=== PATIENT | male | born 1990 | race Caucasian/White ===

== ENCOUNTER 2022-03-30 12:37 | Emergency (ER) | payer OTHER, SELFPAY ==
--- NOTE | 2022-03-30 15:12 | EXP.UTC ---
Discharge Plan Disposition Patient Disposition: Home, Self-Care Condition: Good Prescriptions Prescriptions: No Action nicotine [Nicoderm CQ] 21 mg/24 hr patch 24 hour 1 patch transdermal Q24H Qty: 28 1RF (DME) blood pressure kit-extra large Kit See Rx Instructions .Route Qty: 1 0RF Rx Instructions: As directed Referrals Follow up/Referrals: Viv Schmidt APRN [Primary Care Provider] - See instructions Activity Restrictions/Add. Instructions Additional Instructions/Restrictions: Drink plenty of fluids. Take the ibuprofen for pain regularly for the next few days. Use the incentive spirimoter 10 time every 2 hours while you are awake for the next 2 weeks or so. Follow up with your regular doctor. GO TO THE ER FOR ANY WORSENING SYMPTOMS Clinical Impressions Clinical Impression: Contusion of rib on left side Instructions Patient Instructions: DI for Rib Contusion Discharge ED Provider: Trevor Brink [facility] [place] HPI General Stated complaint: AO03/27@work fall, pain on Lt side Time Seen by Provider: 03/30/22 15:12 History of Present Illness Provider Complaint: He states that 5 days ago he fell on the snow and ice and came down on the left side of his chest. Since then he has had left upper rib pain with coughing, deep breathing and moving. He denies any shortness of breath. Related Data Previous Rx's Medication Instructions Recorded nicotine 21 mg/24 hr daily 1 patch transdermal Q24H #28 ea 03/06/22 transdermal patch (Nicoderm CQ) blood pressure kit-extra large #1 ea 03/09/22 Allergies Allergy/AdvReac Type Severity Reaction Status Date / Time No Known Allergies Allergy Verified 03/30/22 15:23 [facility] Disclaimer: The information contained in this section may have been updated after the patient was seen, as this information can be updated by other users. Medical History No active medical problems Surgical History [place] teeth extracted Social History Smoking Status: Current every day smoker tobacco type: cigarettes packs per day: 1 years smoked: 10 quit status: considering quitting alcohol intake: current substance use type: denies use current occupational status: employed Travel in the last 8 weeks: None household members: spouse and children lives independently: Yes marital status: number of children: 2 ROS Obtained: Yes All systems reviewed & no additional complaints except as documented Constitutional Constitutional: Denies chills and Denies fever(s) Eyes Eyes: Denies eye discharge ENT Ears, Nose, Mouth, and Throat: Denies dizziness, Denies otalgia and Denies sore throat Cardiovascular Cardiovascular: Reports as per HPI and Denies chest pain Respiratory Respiratory: Denies shortness of breath, Denies chest congestion, Denies cough, Denies stridor and Denies wheezing Gastrointestinal Gastrointestingal: Denies nausea or vomiting Musculoskeletal Musculoskeletal: Reports system reviewed and no additional complaints, except as documented and Denies arthralgias Integumentary/Breasts Skin/Breast: Denies rash Neurologic Neurologic: Denies dizziness and Denies paresthesias Allergic/Immunologic Allergic/Immunologic: Denies wheezing Physical Exam General General appearance: alert and in no apparent distress Head Head exam: atraumatic, normocephalic and normal inspection Eye Eye exam: Present normal appearance, PERRL and EOMI ENT ENT exam: Present normal exam, normal oropharynx, mucous membranes moist, TM's normal bilaterally and normal external ear exam Neck Neck exam: Present normal inspection, full ROM and trachea midline; Absent meningismus or lymphadenopathy Chest Chest inspection: Present symmetric chest wall rise; Absent tenderness, rash or abscess Respiratory Respi
[2022-03-30 15:20] VITALS: BP 162/97; PULSE 94; RESP 16; TEMP 37; O2SAT 97; BMI 38.1
--- NOTE | 2022-03-30 15:29 | XR_ITS ---
PROCEDURE INFORMATION: Exam: XR Left Ribs with PA Chest Exam date and time: 03/30/2022 3:54 PM Age: 32 years old Clinical indication: Injury or trauma; Fall; Rib area, left side; Blunt trauma; Additional info: Pain in left ribs after fall on ice TECHNIQUE: Imaging protocol: Radiologic exam of the Left ribs with PA chest. Views: 3 views COMPARISON: No relevant prior studies available. FINDINGS: Lungs: Subsegmental atelectasis left base. Pleural spaces: Unremarkable. No pleural effusion. No pneumothorax. Heart/Mediastinum: Unremarkable. No cardiomegaly. Bones/joints: Unremarkable. IMPRESSION: Subsegmental atelectasis left base.
[2022-03-30 17:01] VITALS: BP 162/97; PULSE 94; RESP 16; TEMP 37
== END 2022-03-30 17:05 | disposition home or self-care (01) ==
PROVIDERS: Emergency Provider Nurse Practitioner Family; PCP Nurse Practitioner Family
DX: S20.212A Contusion of left front wall of thorax, initial encounter (principal); W00.2XXA Other fall from one level to another due to ice and snow, initial encounter
CPT/HCPCS: 71101; 99212; G0463

== ENCOUNTER → 2022-04-06 15:03 | Outpatient (CLI) | payer OTHER, SELFPAY ==
[2022-04-06 15:11] LABS: MANUAL DIFFERENTIAL MANUAL DIFFERENTIAL (MANUAL DIFF)
[2022-04-06 16:19] LABS: Basophils # 0.1 K/mm3 (0-0.2); Basophils % 0.8 % (0.1-2.0); Eosinophils # 0.3 K/mm3 (0.0-0.4); Eosinophils % 4.3 % (0.1-12.0); Hematocrit 46.6 % (42.0-52.0); Hemoglobin 15.6 g/dL (14.1-18.0); Lymphocytes # 1.6 K/mm3 (0.7-4.5); Lymphocytes % 23.1 % (10-50); Mean Corpuscular HGB Conc 33.4 g/dL (31.8-35.4); Mean Corpuscular Hemoglobin 32.2 pg (27.0-31.2); Mean Corpuscular Volume 96.2 fl (80-94); Mean Platelet Volume 8.3 fl (7.4-10.4); Monocytes # 0.3 K/mm3 (0.1-1.0); Monocytes % 4.7 % (1.7-9.3); Neutrophils # 4.8 K/mm3 (1.8-7.8); Neutrophils % 67.2 % (37.0-80.0); Platelet Count 262 K/mm3 (142-424); Red Blood Count 4.85 M/mm3 (4.60-6.20); Red Cell Distribution Width 12.9 % (11.5-17.5); White Blood Count 7.1 K/mm3 (4.8-10.8)
[2022-04-06 16:28] LABS: Hemoglobin A1C 5.4 % (4.0-6.0)
[2022-04-06 16:55] LABS: Chloride 103 mmol/L (98-107)
[2022-04-06 16:56] LABS: Potassium 4.3 mmoL/L (3.5-5.1); Sodium 140 mmol/L (136-145)
[2022-04-06 16:58] LABS: Alanine Aminotransferase 51 U/L (12-78); Albumin Level 4.5 g/dl (3.5-5.0); Albumin/Globulin Ratio 1.8 (1.1-1.8); Alkaline Phosphatase 117 U/L (38-126); Anion Gap 14.3 mEq/L (5-15); Aspartate Amino Transferase 34 U/L (17-59); Bilirubin,Total 0.5 mg/dl (0.2-1.3); Blood Urea Nitrogen 16 mg/dl (9-20); Carbon Dioxide 27 mmol/L (22.0-30.0); Cholesterol 237 mg/dl (140-200); Estimated Glomerular Filt Rate 97 ml/min (>60); GFR (African American) 118 ML/MIN (>60); Globulin 2.5 g/dL (1.3-3.2); Triglycerides 211 mg/dl (30-150); VLDL Cholesterol 42 mg/dL (0-40)
[2022-04-06 16:59] LABS: Calcium 9.6 mg/dl (8.4-10.2); Chol/HDL Ratio 4.2 (1-3.5); Glucose 117 mg/dl (74-100); HDL Cholesterol 57 mg/dl (40-60)
[2022-04-06 17:29] LABS: Thyroid Stimulating Hormone 3.55 uIU/mL (0.465-4.68)
[2022-04-06 18:05] LABS: Eosinophils % 3 % (0-3); Lymphocytes % 40 % (10-50); Monocytes % 2 % (2-9); Neutrophils % 55 % (42-76); Platelet Estimate Normal; RBC Morphology Normal; Total Cells Counted 100
== END ==
PROVIDERS: PCP Family Medicine; Visit Provider Family Medicine
DX: Z00.00 Encounter for general adult medical examination without abnormal findings (principal); F10.10 Alcohol abuse, uncomplicated; R03.0 Elevated blood-pressure reading, without diagnosis of hypertension; Z68.38 Body mass index [BMI] 38.0-38.9, adult; Z72.0 Tobacco use
CPT/HCPCS: 36415; 80053; 80061; 83036; 84443; 85007; 85014; 85018; 85048; 85049

== ENCOUNTER → 2022-10-20 16:36 | Outpatient (CLI) | payer OTHER, SELFPAY ==
[2022-10-20 15:15] LABS: Basophils % 0.5 % (0.1-2.0); Eosinophils # 0.2 K/mm3 (0.0-0.4); Eosinophils % 2.5 % (0.1-12.0); Hematocrit 36.8 % (42.0-52.0); Hemoglobin 12.5 g/dL (14.1-18.0); Lymphocytes # 1.6 K/mm3 (0.7-4.5); Lymphocytes % 23.1 % (10-50); Mean Corpuscular Hemoglobin 31.3 pg (27.0-31.2); Mean Corpuscular Volume 92.1 fl (80-94); Mean Platelet Volume 7.7 fl (7.4-10.4); Monocytes # 0.3 K/mm3 (0.1-1.0); Monocytes % 3.8 % (1.7-9.3); Neutrophils # 4.8 K/mm3 (1.8-7.8); Neutrophils % 70.1 % (37.0-80.0); Platelet Count 247 K/mm3 (142-424); Red Cell Distribution Width 12.7 % (11.5-17.5); White Blood Count 6.8 K/mm3 (4.8-10.8)
[2022-10-20 15:32] LABS: Alanine Aminotransferase 43 U/L (12-78); Albumin Level 4.4 g/dl (3.5-5.0); Albumin/Globulin Ratio 1.6 (1.1-1.8); Alkaline Phosphatase 111 U/L (38-126); Amylase 49 U/L (30-110); Anion Gap 13.6 mEq/L (5-15); Aspartate Amino Transferase 31 U/L (17-59); Bilirubin,Total 0.2 mg/dl (0.2-1.3); Blood Urea Nitrogen 15 mg/dl (9-20); Calcium 9.6 mg/dl (8.4-10.2); Carbon Dioxide 24 mmol/L (22.0-30.0); Chloride 110 mmol/L (98-107); Cholesterol 214 mg/dl (140-200); Estimated Glomerular Filt Rate 111 ml/min (>60); GFR (African American) 135 ML/MIN (>60); Globulin 2.7 g/dL (1.3-3.2); Glucose 95 mg/dl (74-100); HDL Cholesterol 53 mg/dl (40-60); Lipase 37 U/L (23-300); Potassium 4.6 mmoL/L (3.5-5.1); Sodium 143 mmol/L (136-145); Total Protein,Serum 7.1 g/dl (6.3-8.2); Triglycerides 117 mg/dl (30-150); VLDL Cholesterol 23 mg/dL (0-40)
[2022-10-20 15:43] LABS: Direct LDL Cholesterol 134.47 mg/dL (100-129)
[2022-10-20 15:49] LABS: 25-OH Vitamin D, Total 37.2 ng/mL (30-100)
[2022-10-20 16:21] LABS: Vitamin B12 493 pg/mL (239-931)
[2022-10-20 17:00] LABS: Hemoglobin A1C 5.2 % (4.0-6.0)
[2022-10-23 23:14] LABS: Vitamin B1 147.8 nmol/L (66.5-200.0)
[2022-10-26 18:07] LABS: Vitamin B6 16.6 ug/L (3.4-65.2)
== END ==
PROVIDERS: PCP Nurse Practitioner Family; Visit Provider Nurse Practitioner Family
DX: F10.10 Alcohol abuse, uncomplicated (principal); I10 Essential (primary) hypertension; E78.5 Hyperlipidemia, unspecified; E66.9 Obesity, unspecified; Z68.39 Body mass index [BMI] 39.0-39.9, adult; Z13.1 Encounter for screening for diabetes mellitus; Z79.899 Other long term (current) drug therapy
CPT/HCPCS: 80053; 80061; 82150; 82306; 82607; 83036; 83690; 84207; 84425; 85025

== ENCOUNTER 2022-12-06 16:14 | Emergency (ER) | payer OTHER, SELFPAY ==
[2022-12-06 16:30] VITALS: BP 154/83; PULSE 91; O2SAT 97
[2022-12-06 16:31] LABS: Microscopic, Urine URINE MICROSCOPIC (MICROSCOPIC)
[2022-12-06 16:34] VITALS: BP 148/84; PULSE 94; RESP 16; TEMP 36.4; O2SAT 98; BMI 39.5
--- NOTE | 2022-12-06 16:50 | CT_ITS ---
PROCEDURE INFORMATION: Exam: CT Abdomen And Pelvis Without Contrast Exam date and time: 12/06/2022 5:02 PM Age: 32 years old Clinical indication: Abdominal pain; Additional info: Right flank pain TECHNIQUE: Imaging protocol: Computed tomography of the abdomen and pelvis without contrast. Radiation optimization: All CT scans at this facility use at least one of these dose optimization techniques: automated exposure control; mA and/or kV adjustment per patient size (includes targeted exams where dose is matched to clinical indication); or iterative reconstruction. REPORTING DATA: Count of CT and Cardiac NM exams in prior 12 months: This patient has received 0 known CTs and 0 known cardiac nuclear medicine studies in the 12 months prior to the current study. COMPARISON: CR XR RIBS LT MIN 3V W CXR1V 03/30/2022 3:54 PM FINDINGS: Lungs: The visualized lung bases are clear. Pleural spaces: There are no pleural effusions. Heart: The visualized portions of the heart are unremarkable. There is no evidence of pericardial fluid collections. Diaphragm: A small hiatal hernia is present. Liver: There is mild enlargement of the liver. Liver measures 23.5 cm in CC dimension. Evaluation of the liver is limited without contrast but the liver is otherwise within normal limits for this noncontrast study. Gallbladder and bile ducts: The gallbladder is contracted/decompressed. Pancreas: Noncontrast images of the pancreas are within range of normal. Spleen: The spleen is normal. Adrenal glands: The adrenal glands are normal. Kidneys and ureters: There is a proximal right ureteral calcification measuring approximately 8.7 mm resulting in mild right hydronephrosis and perinephric fat stranding. The left kidney is normal. Stomach and bowel: The stomach is normal. The duodenum is unremarkable. Lack of gastrointestinal contrast limits evaluation of bowel. The colon is normal. Unopacified loops of small bowel within range of normal. Appendix: A normal appendix is identified. Intraperitoneal space: No free air. No significant fluid collection. Vasculature: No abdominal aortic aneurysm. Lymph nodes: There is no evidence of pathologic adenopathy. Urinary bladder: The bladder is normal. Reproductive: The prostate and seminal vesicles are normal. Bones/joints: The thoracolumbar spine demonstrates mild degenerative changes at multiple levels. There is no evidence of acute fracture. Soft tissues: There is a tiny fat-containing umbilical hernia. No significant soft tissue edema. IMPRESSION: 1. Proximal right ureteral stone measuring approximately 8.7 mm resulting in mild right hydronephrosis and perinephric fat stranding. 2. Mild hepatomegaly. 3. Small hiatal hernia. 4. Tiny fat- containing umbilical hernia.
--- NOTE | 2022-12-06 16:51 | HMH.EDGENADL ---
Discharge Plan Disposition Patient Disposition: Home, Self-Care Prescriptions Prescriptions: New ibuprofen 800 mg tablet 800 mg PO TID PRN (Reason: pain) 7 Days Qty: 20 0RF hydrocodone-acetaminophen 5-325 mg tablet 1 tab PO Q6H PRN (Reason: pain) 3 Days Qty: 12 0RF tamsulosin [Flomax] 0.4 mg capsule 0.4 mg PO DAILY 7 Days Qty: 7 0RF ondansetron 4 mg tablet,disintegrating 4 mg PO Q6H PRN (Reason: nausea and vomiting) 5 Days Qty: 20 0RF No Action (DME) blood pressure kit-extra large Kit See Rx Instructions .Route Qty: 1 0RF Rx Instructions: As directed lisinopril 40 mg tablet 40 mg PO DAILY Qty: 90 1RF multivitamin Tablet 1 tab PO DAILY ferrous fumarate 325 mg (106 mg iron) tablet 325 mg PO DAILY bupropion HCl 150 mg tablet extended release 24 hr 150 mg PO DAILY esomeprazole magnesium [Nexium] 20 mg capsule,delayed release(DR/EC) 20 mg PO DAILY Qty: 90 1RF levocetirizine [Xyzal] 5 mg tablet 5 mg PO DAILY Qty: 90 3RF Referrals Follow up/Referrals: Xiomara Stacy APRN [Primary Care Provider] - See instructions Clinical Impressions Clinical Impression: Acute right flank pain Instructions Patient Instructions: DI for Acute Abdominal Pain Discharge ED Provider: Aleisha Esteves General Adult HPI General Chief complaint: Abdominal Pain Stated complaint: Abd pain Time Seen by Provider: 12/06/22 16:35 Mode of Arrival: Ambulatory Source of Information: Patient Limitations: No Limitations Description of Symptoms (Recalled from ER Triage Doc. by RN): 32 yo M presents to ED with co abdominal pain. symptoms began approx 1430 today. not tender to palpation at time of exam, pts spouse reports tender to palpation earlier today. History of Present Illness HPI narrative: The patient is a 32-year-old male presenting today with severe sudden right flank pain that is since resolved. This lasted about 45 minutes just prior to arrival. States he was up drinking very heavily all night long went to bed around 1 to 2 AM woke up at noon actually felt well. Patient states he had very dark thick urine 2 times he urinated today. No history of any kidney stones no history of pancreatitis he has no history of cholecystectomy appendectomy. States his symptoms are completely resolved at the moment but was very severe just prior to arrival. Related Data Home Medications Medication Instructions Recorded Confirmed bupropion HCl 150 mg 24 hr tablet, 150 mg PO DAILY 11/30/22 extended release ferrous fumarate 325 mg (106 mg 325 mg PO DAILY 11/30/22 11/30/22 iron) tablet multivitamin 1 tab PO DAILY 11/30/22 11/30/22 Previous Rx's Medication Instructions Recorded blood pressure kit-extra large #1 ea 03/09/22 lisinopril 40 mg tablet 40 mg PO DAILY #90 tabs 10/20/22 esomeprazole magnesium 20 mg 20 mg PO DAILY #90 caps 11/30/22 capsule,delayed release (Nexium) levocetirizine 5 mg tablet (Xyzal) 5 mg PO DAILY #90 tabs 11/30/22 hydrocodone 5 mg-acetaminophen 325 1 tab PO Q6H PRN pain 3 days #12 12/06/22 mg tablet tabs ibuprofen 800 mg tablet 800 mg PO TID PRN pain 7 days #20 12/06/22 tabs ondansetron 4 mg disintegrating 4 mg PO Q6H PRN nausea and 12/06/22 tablet vomiting 5 days #20 tabs tamsulosin 0.4 mg capsule (Flomax) 0.4 mg PO DAILY 7 days #7 caps 12/06/22 Allergies Allergy/AdvReac Type Severity Reaction Status Date / Time No Known Allergies Allergy Verified 11/30/22 09:08 [facility] Disclaimer: The information contained in this section may have been updated after the patient was seen, as this information can be updated by other users. Surgical History [place] teeth extracted Family History Mother Hypertension Social History Smoking Status: Never smoker years smoked: 10 quit
[2022-12-06 16:57] LABS: Color,Urine Dark Yellow (Yellow)
[2022-12-06 16:58] LABS: Appearance,Urine Clear (Clear); Bilirubin,Urine Negative (Negative); Blood, Urine 3+ (Negative); Glucose,Urine (UA) Negative (Negative); Ketones,Urine Negative (Negative); Leukocyte Esterase,Urine Negative (Negative); Nitrate,Urine Negative (Negative); Protein,Urine Trace (Negative); Specific Gravity, Urine 1.015 (1.005-1.030); Urobilinogen,Urine 0.2 EU/dl (0.2)
[2022-12-06 17:00] LABS: RBC,Urine TNTC #/hpf (0-3); Squamous Epithelial Cell,Urine Occasional #/hpf (0-5)
[2022-12-06 17:09] LABS: Basophils % 0.4 % (0.1-2.0); Eosinophils # 0.2 K/mm3 (0.0-0.4); Eosinophils % 2.2 % (0.1-12.0); Lymphocytes # 1.9 K/mm3 (0.7-4.5); Lymphocytes % 18.8 % (10-50); Mean Corpuscular HGB Conc 33.3 g/dL (31.8-35.4); Mean Corpuscular Hemoglobin 31.4 pg (27.0-31.2); Mean Corpuscular Volume 94.3 fl (80-94); Mean Platelet Volume 7.6 fl (7.4-10.4); Monocytes # 0.4 K/mm3 (0.1-1.0); Monocytes % 3.9 % (1.7-9.3); Neutrophils # 7.3 K/mm3 (1.8-7.8); Neutrophils % 74.6 % (37.0-80.0); Platelet Count 251 K/mm3 (142-424); Red Blood Count 4.46 M/mm3 (4.60-6.20); Red Cell Distribution Width 12.9 % (11.5-17.5); White Blood Count 9.8 K/mm3 (4.8-10.8)
[2022-12-06 17:16] LABS: Chloride 103 mmol/L (98-107); Potassium 4.2 mmoL/L (3.5-5.1); Sodium 139 mmol/L (136-145)
[2022-12-06 17:18] LABS: Alanine Aminotransferase 60 U/L (12-78); Alkaline Phosphatase 107 U/L (38-126); Aspartate Amino Transferase 64 U/L (17-59); Bilirubin,Total 0.5 mg/dl (0.2-1.3); Blood Urea Nitrogen 18 mg/dl (9-20); Creatinine Clearance Estimated 202 mL/min (50-200); Estimated Glomerular Filt Rate 86 ml/min (>60); GFR (African American) 104 ML/MIN (>60)
[2022-12-06 17:19] LABS: Albumin Level 4.5 g/dl (3.5-5.0); Albumin/Globulin Ratio 1.3 (1.1-1.8); Anion Gap 17.2 mEq/L (5-15); Calcium 9.7 mg/dl (8.4-10.2); Carbon Dioxide 23 mmol/L (22.0-30.0); Creatine Kinase 1032 U/L (55-170); Globulin 3.4 g/dL (1.3-3.2); Glucose 91 mg/dl (74-100); Lipase 46 U/L (23-300); Total Protein,Serum 7.9 g/dl (6.3-8.2)
[2022-12-06 18:49] VITALS: BP 144/78; PULSE 90; RESP 20; TEMP 36.4; O2SAT 97
== END 2022-12-06 18:50 | disposition home or self-care (01) ==
PROVIDERS: Emergency Provider Student in an Organized Health Care Education/Training Program; PCP Nurse Practitioner Family
DX: R10.9 Unspecified abdominal pain (principal); N13.30 Unspecified hydronephrosis; N20.1 Calculus of ureter; Z87.891 Personal history of nicotine dependence
CPT/HCPCS: 74176; 80053; 81001; 82550; 83690; 85025; 96360; 99285

== ENCOUNTER 2023-10-20 15:32 | Observation (INO) | payer OTHER, SELFPAY ==
--- NOTE | 2023-10-20 | ECG_ITS ---
APPROVED REPORT Exam: Resting ECG HR:81 bpm ECG Measurements Heart Rate 81 AXES MO 151 P 52 QRSd 117 QRS 78 QT 368 T -27 QTc 406 Conclusion SINUS RHYTHM POSSIBLE INFERIOR MYOCARDIAL INFARCTION , OF INDETERMINATE AGE [30 ms Q WAVE IN II/aVF] ABNORMAL ECG UNCONFIRMED REPORT Electronically signed by : Trevor Acuna, 10/20/2023 23:06:19
[2023-10-20 15:34] VITALS: BP 126/65; PULSE 88; RESP 18; TEMP 36.6; O2SAT 95; BMI 39.5
--- NOTE | 2023-10-20 15:53 | ED_ITS ---
Discharge Plan Prescriptions Prescriptions: No Action (DME) blood pressure kit-extra large Kit See Rx Instructions .Route Qty: 1 0RF Rx Instructions: As directed Wegovy 0.25 mg/0.5 mL pen injector 0.25 mg SQ WEEKLY Qty: 2 0RF Rx Instructions: administer weeks 1 through 4 of therapy bupropion HCl [Wellbutrin XL] 300 mg tablet extended release 24 hr 300 mg PO DAILY Qty: 90 1RF multivitamin Tablet 1 tab PO DAILY esomeprazole magnesium [Nexium] 20 mg capsule,delayed release(DR/EC) 20 mg PO DAILY Qty: 90 1RF chlorthalidone 25 mg tablet See Rx Instructions .ROUTE .COMPLEX Qty: 90 1RF Dose Instruction: Take 1 tablet by mouth once daily Rx Instructions: Take 1 tablet by mouth once daily lisinopril 40 mg tablet See Rx Instructions .ROUTE .COMPLEX Qty: 90 1RF Dose Instruction: Take 1 tablet by mouth once daily Rx Instructions: Take 1 tablet by mouth once daily ferrous fumarate [Ferrocite] 324 mg (106 mg iron) tablet See Rx Instructions .ROUTE .COMPLEX Qty: 30 0RF Dose Instruction: Take 1 tablet by mouth once daily Rx Instructions: Take 1 tablet by mouth once daily Referrals Follow up/Referrals: Kimani Martin DO [Primary Care Provider] - See instructions Discharge ED Provider: Lopez Acuna General Adult HPI General Stated complaint: cramps, V/D exposed to heat Time Seen by Provider: 10/20/23 15:51 Related Data Home Medications Medication Instructions Recorded Confirmed multivitamin 1 tab PO DAILY 11/30/22 06/18/23 Previous Rx's Medication Instructions Recorded blood pressure kit-extra large #1 ea 03/09/22 esomeprazole magnesium 20 mg 20 mg PO DAILY #90 caps 11/30/22 capsule,delayed release (Nexium) lisinopril 40 mg tablet See Rx Instructions .Route 05/03/23 .COMPLEX #90 tabs bupropion HCl 300 mg 24 hr tablet, 300 mg PO DAILY #90 tabs 05/07/23 extended release (Wellbutrin XL) semaglutide (weight loss) 0.25 0.25 mg (0.5 mL) SQ WEEKLY #2 mL 05/07/23 mg/0.5 mL subcutaneous pen injector (Wegovy) chlorthalidone 25 mg tablet See Rx Instructions .Route 06/18/23 .COMPLEX #90 tabs ferrous fumarate 324 mg (106 mg See Rx Instructions .Route 06/18/23 iron) tablet (Ferrocite) .COMPLEX #30 tabs Allergies Allergy/AdvReac Type Severity Reaction Status Date / Time No Known Allergies Allergy Verified 06/18/23 09:49 [facility] Disclaimer: The information contained in this section may have been updated after the patient was seen, as this information can be updated by other users. Medical History (Updated 06/18/23 @ 09:52 by TOMAS Roman) Seasonal allergies Edema High blood pressure Surgical History [place] teeth extracted Family History Mother Hypertension Social History (Updated 06/18/23 @ 09:53 by TOMAS Roman) Smoking Status: Former smoker years smoked: 10 quit status: considering quitting alcohol intake: current alcohol intake frequency: 0-2 drinks per day substance use type: denies use current occupational status: employed Travel in the last 8 weeks: None household members: spouse and children lives independently: Yes marital status: number of children: 2 ROS Obtained: Yes Systems reviewed as appropriate & no additional complaints except as documented Physical Exam General General appearance: alert and in no apparent distress Head Head exam: atraumatic and normal inspection Eye Eye exam: Present normal appearance, PERRL and EOMI ENT ENT exam: Present normal exam, normal oropharynx and mucous membranes moist Neck Neck exam: Present normal inspection, full ROM and trachea midline; Absent lymphadenopathy Chest Chest inspection: Present normal inspection and symmetric chest wall rise Respiratory Respiratory exam: Present normal lung sounds bilaterally; Absent accessory muscle use Cardiovascular Cardiovascular exam: Present regular rate, normal rhythm, normal heart sounds, +S1 and +S2 Abdominal Exam Abdominal exam: Present soft and normal bowel sounds; Absent tenderness, guarding or rebound Extremities Exam Extremities exam: Present normal inspection and full ROM Neurological Exam Neurological exam: Present alert, oriented X3 and CN II-XII intact Psychiatric Psychiatric exam: Present normal affect and normal mood Skin Skin exam: Present warm, dry and normal color Lymphatic Lymphatic Findings: no adenopathy Medical Decision Making Medical Decision Narrative: In summary patient is a [age, sex] who presents to the emergency department for evaluation of [complaint]. Patient is [hemodynamically stable/unstable] upon arrival, [febrile/afebrile]. [Unremarkable physical exam, nonfocal exam versus focal remarkable exam]. Differential diagnosis includes [DDx]. Initial workup will be conducted with [hematologic labs, imaging, respiratory swab, describe workup]. Initial interventions include [crystalloid bolus, medications, p.o. challenge, etc.] initial workup reviewed by me [hematologic labs are remarkable for... Imaging remarkable for... Urinalysis remarkable for]. Upon repeat evaluation [patient had acceptable resolution of symptoms, had persistent pain for which additional interventions were conducted (describe interventions), tolerated p.o., was ambulatory, etc.]. Given this [patient is appropriate for discharge at this time and will be discharged with a prescription for... The case was discussed with hospital medicine regarding management and they will admit the patient their service for continued evaluation at this time... Etc.] Places where you can increase complexity: I informally interpreted the patient's chest x-ray or CT read and is remarkable for... Documenting what the nurse monitoring shows with rate and rhythm Consideration of test but deferring. Ex: I considered chest x-ray on this patient however given that they have no oxygen requirement and are clear to auscultation all lung feliz will be deferred. Social determinants of health: Given that patient is undomiciled increases complexity. Given that patient has polysubstance abuse compounds all aspects of care
[2023-10-20] MEDS: LACTATED RINGERS 1000ML 1,000 ML 999 ML IV ×2 (16:24→18:35)
[2023-10-20] MEDS: ACETAMINOPHEN 1,000MG/100ML VIAL 1000 MG IV (16:25)
--- NOTE | 2023-10-20 16:25 | ED_ITS ---
Discharge Plan Disposition Patient Disposition: Admitted Prescriptions Prescriptions: No Action (DME) blood pressure kit-extra large Kit See Rx Instructions .Route Qty: 1 0RF Rx Instructions: As directed Wegovy 0.25 mg/0.5 mL pen injector 0.25 mg SQ WEEKLY Qty: 2 0RF Rx Instructions: administer weeks 1 through 4 of therapy bupropion HCl [Wellbutrin XL] 300 mg tablet extended release 24 hr 300 mg PO DAILY Qty: 90 1RF multivitamin Tablet 1 tab PO DAILY esomeprazole magnesium [Nexium] 20 mg capsule,delayed release(DR/EC) 20 mg PO DAILY Qty: 90 1RF chlorthalidone 25 mg tablet See Rx Instructions .ROUTE .COMPLEX Qty: 90 1RF Dose Instruction: Take 1 tablet by mouth once daily Rx Instructions: Take 1 tablet by mouth once daily lisinopril 40 mg tablet See Rx Instructions .ROUTE .COMPLEX Qty: 90 1RF Dose Instruction: Take 1 tablet by mouth once daily Rx Instructions: Take 1 tablet by mouth once daily ferrous fumarate [Ferrocite] 324 mg (106 mg iron) tablet See Rx Instructions .ROUTE .COMPLEX Qty: 30 0RF Dose Instruction: Take 1 tablet by mouth once daily Rx Instructions: Take 1 tablet by mouth once daily Referrals Follow up/Referrals: Kimani Martin DO [Primary Care Provider] - See instructions Clinical Impressions Clinical Impression: Heat exhaustion, Dehydration, severe, ABDELRAHMAN (acute kidney injury) Discharge ED Provider: Lopez Acuna General Adult HPI General Chief complaint: Weakness Stated complaint: cramps, V/D exposed to heat Time Seen by Provider: 10/20/23 15:51 Mode of Arrival: Ambulatory Source of Information: Patient Limitations: No Limitations Description of Symptoms (Recalled from ER Triage Doc. by RN): pt drank alcohol wednesday night and then has worked outside in heat and sun for the last 3 days and has heat exhaustion and dehydration. he says this has happened before pt is alox4 and vitals wnl upon triage, ER MD at bedside History of Present Illness HPI narrative: Patient is a previously healthy 33-year-old male presenting today with generalized fatigue and exhaustion and muscle weakness of the last several days. He works outside as a powerplant operator and states it has been extremely hot the last few days. Also states that he drank heavily yesterday evening which contribute to his symptoms today. States has had heat exhaustion in the past and this feels very similar. Has had decreased urine output and some muscle cramps but no dark urine. Denies any other focal complaints or symptoms. No loss of consciousness no focal neurologic deficits changes in mental status etc. Other than the hypertension history of kidney stones he has no past medical history. Related Data Home Medications Medication Instructions Recorded Confirmed multivitamin 1 tab PO DAILY 11/30/22 06/18/23 Previous Rx's Medication Instructions Recorded blood pressure kit-extra large #1 ea 03/09/22 esomeprazole magnesium 20 mg 20 mg PO DAILY #90 caps 11/30/22 capsule,delayed release (Nexium) lisinopril 40 mg tablet See Rx Instructions .Route 05/03/23 .COMPLEX #90 tabs bupropion HCl 300 mg 24 hr tablet, 300 mg PO DAILY #90 tabs 05/07/23 extended release (Wellbutrin XL) semaglutide (weight loss) 0.25 0.25 mg (0.5 mL) SQ WEEKLY #2 mL 05/07/23 mg/0.5 mL subcutaneous pen injector (Wegovy) chlorthalidone 25 mg tablet See Rx Instructions .Route 06/18/23 .COMPLEX #90 tabs ferrous fumarate 324 mg (106 mg See Rx Instructions .Route 06/18/23 iron) tablet (Ferrocite) .COMPLEX #30 tabs Allergies Allergy/AdvReac Type Severity Reaction Status Date / Time No Known Allergies Allergy Verified 06/18/23 09:49 [facility] Disclaimer: The information contained in this section may have been updated after the patient was seen, as this information can be updated by other users. Medical History (Updated 10/20/23 @ 18:17 by Lopez Acuna MD) Seasonal allergies Edema High blood pressure Surgical History [place] teeth extracted Family History Mother Hypertension Social History (Updated 06/18/23 @ 09:53 by TOMAS Roman) Smoking Status: Former smoker years smoked: 10 quit status: considering quitting alcohol intake: current alcohol intake frequency: 0-2 drinks per day substance use type: denies use current occupational status: employed Travel in the last 8 weeks: None household members: spouse and children lives independently: Yes marital status: number of children: 2 ROS Obtained: Yes All systems reviewed & no additional complaints except as documented Physical Exam General General appearance: alert and in no apparent distress Respiratory Respiratory exam: Present normal lung sounds bilaterally; Absent respiratory distress Cardiovascular Cardiovascular exam: Present regular rate and normal rhythm Abdominal Exam Abdominal exam: Present soft; Absent distention or tenderness Neurological Exam Neurological exam: Present alert and oriented X3 Medical Decision Making Jimenez Inquiry Pt receiving controlled substance: No Vital Signs: 10/20/23 15:34 10/20/23 17:00 Temperature 97.8 F Temperature Source Oral Pulse Rate 90 Pulse Rate [Right Radial] 88 Respiratory Rate 18 13 Blood Pressure 119/61 Blood Pressure [Right Arm] 126/65 Blood Pressure Mean [Right Arm] 85 02 Sat by Pulse Oximetry 95 95 Oxygen Delivery Method Room Air Room Air Lab Data Lab results reviewed: Yes I reviewed the patient's lab results. Lab Results 10/20/23 : WBC 10.8, RBC 4.49 L, Hgb 14.9, Hct 42.0, MCV 93.4, MCH 33.2 H, MCHC 35.6 H, RDW 13.4, Plt Count 257, MPV 7.1 L, Neut % (Auto) 60.0, Lymph % (Auto) 31.0, [place] % (Auto) 7.3, Eos % (Auto) 1.2, Baso % (Auto) 0.6, Neut # (Auto) 6.5, Lymph # (Auto) 3.3, [place] # (Auto) 0.8, Eos # (Auto) 0.1, Baso # (Auto) 0.1, S odium 134 L, Potassium 3.2 L, Chloride 96 L, Carbon Dioxide 26, Anion Gap 15.2 H , BUN 51 H, Creatinine 3.60 H, Estimated Creat Clear 56, Estimated GFR 20 L, Est GFR ( Amer) 24 L, Glucose 122 H, Calcium 12.3 H*, Magnesium 2.3, Total Bilirubin 0.6, AST 60 H, ALT 95 H, Alkaline Phosphatase 90, Total Creatine Kinase 203 H, Total Protein 8.0, Albumin 4.6, Globulin 3.4 H, Albumin/Globulin Ratio 1.4 10/20/23 Unknown 10/20/23 Unknown Orders (Tests/Meds): ED MEDICATIONS Generic Name Dose Route Start Last Admin Trade Name Freq PRN Reason Stop Dose Admin Lactated Ringer's 1,000 mls @ 999 mls/hr 10/20/23 18:15 Lactated Ringer's 1000 Ml Bag IV 10/20/23 19:15 .Q1H1M CONSUELO Lactated Ringer's 1,000 mls @ 100 mls/hr 10/20/23 18:15 Lactated Ringer's 1000 Ml Bag IV 11/19/23 18:14 .Q10H CONSUELO Non-Formulary Medication 300 mg 10/21/23 09:00 Bupropion Hcl [Wellbutrin Xl] PO 11/20/23 08:59 DAILY CONSUELO Discontinued Medications Generic Name Dose Route Start Last Admin Trade Name Freq PRN Reason Stop Dose Admin Acetaminophen 1,000 mg 10/20/23 15:54 10/20/23 16:25 Acetaminophen 1,000mg/100ml Vial IV 10/20/23 15:55 1,000 mg ONCE ONE Administration Lactated Ringer's 1,000 mls @ 999 mls/hr 10/20/23 15:54 10/20/23 16:24 Lactated Ringer's 1000 Ml Bag IV 10/20/23 16:54 999 mls/hr .Q1H1M ONE Administration Ondansetron HCl 4 mg 10/20/23 15:54 10/20/23 16:23 Ondansetron 4mg/2ml Vial IV 10/20/23 15:55 Not Given ONCE ONE ORDERS Category Date Time Status CBC w/Auto Diff [Complete Blood Count Auto Diff] Stat Lab 10/20/23 Completed CK [Creatine Kinase] Stat Lab 10/20/23 Completed CMP [Comprehensive Metabolic Panel] Stat Lab 10/20/23 Completed Complete Blood Count Auto Diff AMLAB Lab 10/21/23 06:00 Ordered Comprehensive Metabolic Panel AMLAB Lab 10/21/23 06:00 Ordered Magnesium AMLAB Lab 10/21/23 06:00 Ordered Magnesium Stat Lab 10/20/23 Completed Medical Decision Narrative: Patient is a 33-year-old male presenting today with generalized malaise and fatigue and muscle aches after working in the extreme heat recently as well as superimposed on heavy drinking which likely contributed dehydration. Will check basic electrolytes give IV fluids and reassess. Reassessment 617 patient feeling much better after IV fluids however labs returned showing a significant acute kidney injury with a creatinine of 3.6 up from a baseline of 1.0. Does have a significant elevation in his BUN most likely prerenal azotemia from dehydration. CK is normal no evidence of rhabdomyolysis. Spoke with Dr. Martin who agreed to admit the patient for further evaluation and management of this dehydration acute kidney injury. Second liter of IV fluids has been administered patient and family are agreeable to this plan. Critical Care Critical Care Time Critical Care Time: Yes Attestation: On 10/20/23, the high probability of a clinically significant, sudden or life threatening deterioration of the following system(s) required my full and direct attention, intervention and personal management. The time I documented below is in addition to time spent performing reported procedures but includes the following listed in this critical care notation. Total Time Total Critical Care Time: 35
[2023-10-20 16:44] LABS: Basophils # 0.1 K/mm3 (0-0.2); Basophils % 0.6 % (0.1-2.0); Eosinophils # 0.1 K/mm3 (0.0-0.4); Eosinophils % 1.2 % (0.1-12.0); Hemoglobin 14.9 g/dL (14.1-18.0); Lymphocytes # 3.3 K/mm3 (0.7-4.5); Mean Corpuscular HGB Conc 35.6 g/dL (31.8-35.4); Mean Corpuscular Hemoglobin 33.2 pg (27.0-31.2); Mean Corpuscular Volume 93.4 fl (80-94); Mean Platelet Volume 7.1 fl (7.4-10.4); Monocytes # 0.8 K/mm3 (0.1-1.0); Monocytes % 7.3 % (1.7-9.3); Neutrophils # 6.5 K/mm3 (1.8-7.8); Platelet Count 257 K/mm3 (142-424); Red Blood Count 4.49 M/mm3 (4.60-6.20); Red Cell Distribution Width 13.4 % (11.5-17.5); White Blood Count 10.8 K/mm3 (4.8-10.8)
[2023-10-20 16:55] LABS: Chloride 96 mmol/L (98-107); Potassium 3.2 mmoL/L (3.5-5.1); Sodium 134 mmol/L (136-145)
[2023-10-20 16:58] LABS: Alanine Aminotransferase 95 U/L (12-78); Albumin Level 4.6 g/dl (3.5-5.0); Albumin/Globulin Ratio 1.4 (1.1-1.8); Alkaline Phosphatase 90 U/L (38-126); Anion Gap 15.2 mEq/L (5-15); Aspartate Amino Transferase 60 U/L (17-59); Bilirubin,Total 0.6 mg/dl (0.2-1.3); Blood Urea Nitrogen 51 mg/dl (9-20); Carbon Dioxide 26 mmol/L (22.0-30.0); Creatine Kinase 203 U/L (55-170); Creatinine Clearance Estimated 56 mL/min (50-200); Estimated Glomerular Filt Rate 20 ml/min (>60); GFR (African American) 24 ML/MIN (>60); Globulin 3.4 g/dL (1.3-3.2); Glucose 122 mg/dl (74-100); Magnesium 2.3 mg/dl (1.6-2.3)
[2023-10-20 17:00] VITALS: BP 119/61; PULSE 90; RESP 13; O2SAT 95
[2023-10-20 17:06] LABS: Calcium 12.3 mg/dl (8.4-10.2)
--- NOTE | 2023-10-20 17:10 | PC.NURSE ---
Reported CA level of 12.3 to
--- NOTE | 2023-10-20 18:16 | PC.NURSE ---
notified house for admisson to 2nd floor per hospitalist.
--- NOTE | 2023-10-20 18:18 | PC.NURSE ---
notified house for admission to 2nd floor per hospitalist.
[2023-10-20 18:44] VITALS: BP 136/79; PULSE 80; RESP 18; TEMP 36.9; O2SAT 98
--- NOTE | 2023-10-20 18:47 | PC.NURSE ---
walked to floor from ED
[2023-10-20 19:00] VITALS: BP 118/84; PULSE 88; RESP 18; TEMP 36.7; O2SAT 96; BMI 37.7
[2023-10-20 20:00] VITALS: O2SAT 96
--- NOTE | 2023-10-20 20:13 | P.HP_ITS ---
History of Present Illness *Admission Date: 10/20/23 *Reason for visit:: Weakness *History of present illness: 7 Mandi is a 33-year-old male past medical history significant for HTN who presents emergency room tonight with generalized malaise, fatigue, exhaustion and weakness. 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 He tells me that Wednesday night, he drank a bit more than usual and then has been outside in the extreme heat in the sun working for the last couple of days. States he is had several episodes of nonbloody, nonbilious vomiting over the last couple of days. Noticed some decreased urine output and reports that his muscles have been extremely fatigued and cramping over the last couple of days. Has had heat exhaustion in the past and reports that this feels a bit likely heat exhaustion. Has been able to drink some water but likely tells me he has not had enough water intake. Denies any fever, cough, chest pain, shortness of breath, abdominal pain, or bladder dysfunction. No focal neurodeficits noted. Does not take any blood thinners. Does use a vape pen, endorses social alcohol use, no illicit drug use. Lab work in the ER showed an elevated BUN and creatinine of 51 and 3.6, baseline is typically around 18 and 1. Calcium elevated at 12.3, ALT and AST elevated at 95 and 60. Potassium a bit low at 3.2. Patient was given a 2 L IV fluid bolus in the emergency room. He will be admitted to the hospitalist service for ABDELRAHMAN secondary to dehydration from working outside. [facility] Disclaimer: The information contained in this section may have been updated after the patient was seen, as this information can be updated by other users. Medical History Kidney stones Seasonal allergies Edema High blood pressure Surgical History [place] teeth extracted Family History Mother Hypertension Social History (Updated 10/20/23 @ 19:37 by Karey Durbin RN) Smoking Status: Current every day smoker tobacco type: e-cigarettes smoking status start date: 2014 years smoked: 10 (stopped smoking ciggarettes 1.5 years ago and started vaping ) quit status: considering quitting alcohol intake: current alcohol intake frequency: 0-2 drinks per day substance use type: denies use current occupational status: employed Travel in the last 8 weeks: None household members: spouse and children lives independently: Yes marital status: number of children: 2 Review of Systems *Cardiovascular Cardiovascular: Reports system reviewed and no additional complaints, except as documented *Respiratory Respiratory: Reports system reviewed and no additional complaints, except as documented *Gastrointestinal Gastrointestinal: Reports system reviewed and no additional complaints, except as documented *Genitourinary Genitourinary: Reports oliguria *Musculoskeletal Musculoskeletal: Reports muscle weakness *Neurologic Neurologic: Reports system reviewed and no additional complaints, except as documented Meds Home Medications and Allergies Home Medications Medication Instructions Recorded Confirmed Type blood pressure kit-extra large #1 ea 03/09/22 10/21/23 Rx bupropion HCl 300 mg 24 hr tablet, 300 mg PO DAILY 10/20/23 10/20/23 History extended release chlorthalidone 25 mg tablet 25 mg PO DAILY 10/20/23 10/20/23 History lisinopril 40 mg tablet 40 mg PO DAILY 10/20/23 10/20/23 History New Prescriptions to Start Prescriptions: Allergies Allergy/AdvReac Type Severity Reaction Status Date / Time No Known Allergies Allergy Verified 06/18/23 09:49 Exam Data for Last 24 hours Vital signs and Labs for Last 24 Hours: Temp Pulse Resp BP Pulse Ox O2 Del Method 98.0 F 88 18 118/84 96 Room Air 10/20/23 19:00 10/20/23 19:00 10/20/23 19:00 10/20/23 19:00 10/20/23 19:00 10/20/23 19:00 Laboratory Results - last 24 hr 10/20/23 : WBC 10.8, RBC 4.49 L, Hgb 14.9, Hct 42.0, MCV 93.4, MCH 33.2 H, MCHC 35.6 H, RDW 13.4, Plt Count 257, MPV 7.1 L, Neut % (Auto) 60.0, Lymph % (Auto) 31.0, [place] % (Auto) 7.3, Eos % (Auto) 1.2, Baso % (Auto) 0.6, Neut # (Auto) 6.5, Lymph # (Auto) 3.3, [place] # (Auto) 0.8, Eos # (Auto) 0.1, Baso # (Auto) 0.1, Sodium 134 L, Potassium 3.2 L, Chloride 96 L, Carbon Dioxide 26, Anion Gap 15.2 H, BUN 51 H, Creatinine 3.60 H, Estimated Creat Clear 56, Estimated GFR 20 L, Est GFR ( Amer) 24 L, Glucose 122 H, Calcium 12.3 H*, Magnesium 2.3, Total Bilirubin 0.6, AST 60 H, ALT 95 H, Alkaline Phosphatase 90, Total Creatine Kinase 203 H, Total Protein 8.0, Albumin 4.6, Globulin 3.4 H, Albumin/Globulin Ratio 1.4 I & O for Last 24 hours: Intake & Output 10/17/23 10/18/23 10/19/23 10/20/23 23:59 23:59 23:59 23:59 Weight 129.756 kg *Routine HEENT Exam Head: Present normocephalic and atraumatic Eye: Present EOMI and PERRL ENT: Present mucous membranes moist *Routine Neck Exam Neck: Present supple and full ROM *Routine Respiratory Exam Respiratory: Present accessory muscle use *Routine Cardiovascular Exam Cardiovascular: Present RRR, Normal S1 and Normal S2 *Routine Abdominal Exam Abdominal: Present soft and normoactive bowel sounds *Routine Rectal Exam Rectal:: deferred *Routine Genitalia Exam Genitalia:: deferred *Routine Extremities Exam Extremities: Present pulses intact and normal capillary refill *Routine Skin Exam Skin: Present intact *Routine Neurological Exam Neurological: Present alert and oriented X3 Assessment and Plan *Assessment and plan (1) ABDELRAHMAN (acute kidney injury): Status: Acute Category: Medical Code(s): N17.9 - Acute kidney failure, unspecified (2) Dehydration, severe: Status: Acute Category: Medical Code(s): E86.0 - Dehydration (3) Hypertension: Status: Acute Category: Medical Code(s): I10 - Essential (primary) hypertension (4) Tobacco abuse: Status: Acute Category: Medical Code(s): Z72.0 - Tobacco use Plan Assessment: This is a 33-year-old male being admitted for ABDELRAHMAN secondary to dehydration. On my exam, patient is sitting up in bed in no acute distress. No complaints at this time. Plan: Admit to inpatient-MedSurg ABDELRAHMAN Dehydration -Received 2 L IV fluid bolus in the ER, continue maintenance IV fluids -Encourage p.o. intake -Avoid nephrotoxic medications -Monitor serum BUN/creatinine -Will recheck kidney function in the morning HTN -Holding ABDULAZIZ inhibitor and diuretic in the setting of ABDELRAHMAN -Patient has been normotensive, continue to monitor Tobacco abuse -Nicotine patch Anxiety/depression -Renal dose Wellbutrin DVT prophylaxis: Heparin CODE STATUS: Full code Surrogate decision maker: Angelia [phone] Skin: Low risk Rounded on patient after nurse practitioner. Personally examined and interviewed patient. Agree with exam findings and care plan as documented.
[2023-10-20] MEDS: POTASSIUM CHLORIDE 20MEQ TAB 20 MEQ PO (20:35)
[2023-10-21] VITALS: BP 112/66; PULSE 81; RESP 18; TEMP 36.6; O2SAT 97
[2023-10-21 04:00] VITALS: BMI 37.9
--- NOTE | 2023-10-21 05:39 | PC.NURSE ---
VITAL SIGNS STABLE. SPOUSE AT BEDSIDE. NO COMPLAINTS OF PAIN OR DISCOMFORT.
[2023-10-21 06:25] LABS: Basophils # 0.1 K/mm3 (0-0.2); Basophils % 0.9 % (0.1-2.0); Eosinophils # 0.1 K/mm3 (0.0-0.4); Eosinophils % 1.3 % (0.1-12.0); Hematocrit 39.2 % (42.0-52.0); Hemoglobin 13.6 g/dL (14.1-18.0); Lymphocytes # 1.8 K/mm3 (0.7-4.5); Lymphocytes % 26.6 % (10-50); Mean Corpuscular HGB Conc 34.8 g/dL (31.8-35.4); Mean Corpuscular Hemoglobin 33.5 pg (27.0-31.2); Mean Corpuscular Volume 96.3 fl (80-94); Mean Platelet Volume 7.8 fl (7.4-10.4); Monocytes # 0.5 K/mm3 (0.1-1.0); Neutrophils # 4.3 K/mm3 (1.8-7.8); Neutrophils % 64.3 % (37.0-80.0); Platelet Count 198 K/mm3 (142-424); Red Blood Count 4.07 M/mm3 (4.60-6.20); Red Cell Distribution Width 13.5 % (11.5-17.5); White Blood Count 6.6 K/mm3 (4.8-10.8)
[2023-10-21 06:58] LABS: Alanine Aminotransferase 79 U/L (12-78); Albumin Level 4.1 g/dl (3.5-5.0); Albumin/Globulin Ratio 1.5 (1.1-1.8); Alkaline Phosphatase 86 U/L (38-126); Anion Gap 9.5 mEq/L (5-15); Aspartate Amino Transferase 53 U/L (17-59); Bilirubin,Total 0.5 mg/dl (0.2-1.3); Blood Urea Nitrogen 43 mg/dl (9-20); Calcium 11.5 mg/dl (8.4-10.2); Carbon Dioxide 27 mmol/L (22.0-30.0); Chloride 102 mmol/L (98-107); Creatinine Clearance Estimated 112 mL/min (50-200); Estimated Glomerular Filt Rate 46 ml/min (>60); GFR (African American) 56 ML/MIN (>60); Globulin 2.7 g/dL (1.3-3.2); Glucose 105 mg/dl (74-100); Potassium 3.5 mmoL/L (3.5-5.1); Sodium 135 mmol/L (136-145); Total Protein,Serum 6.8 g/dl (6.3-8.2)
[2023-10-21 08:00] VITALS: BP 135/69; PULSE 76; RESP 16; TEMP 36.6; O2SAT 98
--- NOTE | 2023-10-21 08:08 | HMH.PHAINT1 ---
Pharmacy Intervention Comments: MEDICATION RECONCILIATION COMPLETED ON PATIENT USING EXTERNAL FILL HISTORY FROM PHARMACY. -AMI SILVERMAN, ISAACD
[2023-10-21] MEDS: buPROPion HCl SR 150MG TAB 150 MG PO (09:00)
[2023-10-21] MEDS: LACTATED RINGERS 1000ML 1,000 ML 100 ML IV (09:01)
--- NOTE | 2023-10-21 10:43 | EXP.DC.SUM ---
General Admission date:: 10/20/23 Discharge date: 10/21/23 HPI HPI HPI: Stephen Raymond is a 33-year-old male past medical history significant for HTN who presents emergency room tonight with generalized malaise, fatigue, exhaustion and weakness. 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 He tells me that Wednesday night, he drank a bit more than usual and then has been outside in the extreme heat in the sun working for the last couple of days. States he is had several episodes of nonbloody, nonbilious vomiting over the last couple of days. Noticed some decreased urine output and reports that his muscles have been extremely fatigued and cramping over the last couple of days. Has had heat exhaustion in the past and reports that this feels a bit likely heat exhaustion. Has been able to drink some water but likely tells me he has not had enough water intake. Denies any fever, cough, chest pain, shortness of breath, abdominal pain, or bladder dysfunction. No focal neurodeficits noted. Does not take any blood thinners. Does use a vape pen, endorses social alcohol use, no illicit drug use. Lab work in the ER showed an elevated BUN and creatinine of 51 and 3.6, baseline is typically around 18 and 1. Calcium elevated at 12.3, ALT and AST elevated at 95 and 60. Potassium a bit low at 3.2. Patient was given a 2 L IV fluid bolus in the emergency room. He will be admitted to the hospitalist service for ABDELRAHMAN secondary to dehydration from working outside. Hospital Course Hospital Course Hospital Course: This is a 33-year-old male being admitted for ABDELRAHMAN secondary to dehydration. On my exam, patient is sitting up in bed in no acute distress. No complaints at this time. Admitted to medicine for further management. Did well overnight with fluid resuscitation. Still significant improvement in creatinine. Stable to discharge home. Needs close follow-up with PCP with repeat labs in the next 1 to 2 days. Problems addressed as follows: ABDELRAHMAN Dehydration -Received 2 L IV fluid bolus in the ER, continued on maintenance fluids overnight. Initial creatinine 3.6, BUN 51. Creatinine improved to 1.7, BUN 43 by morning. Held patient's lisinopril. Tolerating p.o. fluids. Given improvement in kidney function and tolerance of p.o. intake, stable to discharge home. Repeat BMP in 2 to 3 days to monitor kidney function. HTN -Holding ABDULAZIZ inhibitor and diuretic in the setting of ABDELRAHMAN. Continue to hold at discharge pending follow-up with PCP. Blood pressure stable at 135/69. Tobacco abuse: Nicotine patch as needed during admission. Anxiety/depression: Renal dose Wellbutrin during admission. Resume at discharge. Exam Data for Last 24 hours Vital signs and Labs for Last 24 Hours: Temp Pulse Resp BP Pulse Ox O2 Del Method 98 F 76 16 135/69 98 Room Air 10/21/23 08:00 10/21/23 08:00 10/21/23 08:00 10/21/23 08:00 10/21/23 08:00 10/21/23 06:29 Laboratory Results - last 24 hr 10/20/23 : WBC 10.8, RBC 4.49 L, Hgb 14.9, Hct 42.0, MCV 93.4, MCH 33.2 H, MCHC 35.6 H, RDW 13.4, Plt Count 257, MPV 7.1 L, Neut % (Auto) 60.0, Lymph % (Auto) 31.0, Johnston % (Auto) 7.3, Eos % (Auto) 1.2, Baso % (Auto) 0.6, Neut # (Auto) 6.5, Lymph # (Auto) 3.3, Johnston # (Auto) 0.8, Eos # (Auto) 0.1, Baso # (Auto) 0.1, Sodium 134 L, Potassium 3.2 L, Chloride 96 L, Carbon Dioxide 26, Anion Gap 15.2 H, BUN 51 H, Creatinine 3.60 H, Estimated Creat Clear 56, Estimated GFR 20 L, Est GFR ( Amer) 24 L, Glucose 122 H, Calcium 12.3 H*, Magnesium 2.3, Total Bilirubin 0.6, AST 60 H, ALT 95 H, Alkaline Phosphatase 90, Total Creatine Kinase 203 H, Total Protein 8.0, Albumin 4.6, Globulin 3.4 H, Albumin/Globulin Ratio 1.4 10/21/23 05:59: WBC 6.6 D, RBC 4.07 L, Hgb 13.6 L, Hct 39.2 L, MCV 96.3 H, MCH 33.5 H, MCHC 34.8, RDW 13.5, Plt Count 198, MPV 7.8, Neut % (Auto) 64.3, Lymph % (Auto) 26.6, Johnston % (Auto) 7.0, Eos % (Auto) 1.3, Baso % (Auto) 0.9, Neut # (Auto) 4.3, Lymph # (Auto) 1.8, Johnston # (Auto) 0.5, Eos # (Auto) 0.1, Baso # (Auto) 0.1, Sodium 135 L, Potassium 3.5, Chloride 102, Carbon Dioxide 27, Anion Gap 9.5, BUN 43 H, Creatinine 1.70 H D, Estimated Creat Clear 112, Estimated GFR 46 L, Est GFR ( Amer) 56 L D, Glucose 105 H, Calcium 11.5 H, Magnesium 2.0 D, Total Bilirubin 0.5, AST 53, ALT 79 H, Alkaline Phosphatase 86, Total Protein 6.8, Albumin 4.1 D, Globulin 2.7, Albumin/Globulin Ratio 1.5 I & O for Last 24 hours: Intake & Output 10/18/23 10/19/23 10/20/23 10/21/23 23:59 23:59 23:59 23:59 Intake Total 1999 1232 / 1232 Output Total 0 / 0 Balance 1999 1232 / 1232 Weight 129.756 kg 129.812 kg Constitutional Constitutional: no acute distress, obese and cooperative *Routine HEENT Exam Head: Present normocephalic Eye: Present EOMI and PERRL ENT: Present mucous membranes moist *Routine Neck Exam Neck: Present supple; Absent lymphadenopathy *Routine Respiratory Exam Respiratory: Present CTA bilaterally; Absent rhonchi, wheezes or crackles *Routine Cardiovascular Exam Cardiovascular: Present RRR *Routine Abdominal Exam Abdominal: Present soft and normoactive bowel sounds; Absent tenderness *Routine Rectal Exam Patient deferred: visual exam *Routine Exam Patient deferred: penile exam *Routine Extremities Exam Extremities: Absent cyanosis, clubbing or edema *Routine Skin Exam Skin: Present warm; Absent rash *Routine Neurological Exam Neurological: Present alert, oriented X3 and moving all extremities; Absent altered mental status Results Data Completed and Pending Labs on day of discharge: Labs from last 24 hours 10/21/23 10/20/23 05:59 Unknown WBC 6.6 D 10.8 RBC 4.07 L 4.49 L Hgb 13.6 L 14.9 Hct 39.2 L 42.0 MCV 96.3 H 93.4 MCH 33.5 H 33.2 H MCHC 34.8 35.6 H RDW 13.5 13.4 Plt Count 198 257 MPV 7.8 7.1 L Neut % (Auto) 64.3 60.0 Lymph % (Auto) 26.6 31.0 Johnston % (Auto) 7.0 7.3 Eos % (Auto) 1.3 1.2 Baso % (Auto) 0.9 0.6 Neut # (Auto) 4.3 6.5 Lymph # (Auto) 1.8 3.3 Johnston # (Auto) 0.5 0.8 Eos # (Auto) 0.1 0.1 Baso # (Auto) 0.1 0.1 Sodium 135 L 134 L Potassium 3.5 3.2 L Chloride 102 96 L Carbon Dioxide 27 26 Anion Gap 9.5 15.2 H BUN 43 H 51 H Creatinine 1.70 H D 3.60 H Estimated Creat Clear 112 56 Estimated GFR 46 L 20 L Est GFR ( Amer) 56 L D 24 L Glucose 105 H 122 H Calcium 11.5 H 12.3 H* Magnesium 2.0 D 2.3 Total Bilirubin 0.5 0.6 AST 53 60 H ALT 79 H 95 H Alkaline Phosphatase 86 90 Total Creatine Kinase 203 H Total Protein 6.8 8.0 Albumin 4.1 D 4.6 Globulin 2.7 3.4 H Albumin/Globulin Ratio 1.5 1.4 DS: Diagnosis Discharge Diagnosis (1) ABDELRAHMAN (acute kidney injury): Status: Acute Code(s): N17.9 - Acute kidney failure, unspecified (2) Dehydration, severe: Status: Acute Code(s): E86.0 - Dehydration (3) Hypertension: Status: Acute Code(s): I10 - Essential (primary) hypertension (4) Tobacco abuse: Status: Acute Code(s): Z72.0 - Tobacco use Meds Home Medications and Allergies Home Medications Medication Instructions Recorded Confirmed Type blood pressure kit-extra large #1 ea 03/09/22 10/21/23 Rx bupropion HCl 300 mg 24 hr tablet, 300 mg PO DAILY 10/20/23 10/20/23 History extended release chlorthalidone 25 mg tablet 25 mg PO DAILY 10/20/23 10/20/23 History lisinopril 40 mg tablet 40 mg PO DAILY 10/20/23 10/20/23 History New Prescriptions to Start Prescriptions: Allergies Allergy/AdvReac Type Severity Reaction Status Date / Time No Known Allergies Allergy Verified 06/18/23 09:49 Discharge Plan Disposition Patient Disposition: Home, Self-Care Condition: Good Follow up Plan Follow up with: Xiomara Stacy APRN [Nurse Practitioner] - 10/25/23 8:45 am Prescriptions/Medication Reconciliation: Continued (DME) blood pressure kit-extra large Kit See Rx Instructions .Route Qty: 1 0RF Rx Instructions: As directed bupropion HCl 300 mg tablet extended release 24 hr 300 mg PO DAILY Patient Comments: TAKE ONE TABLET BY MOUTH EVERY DAY Held chlorthalidone 25 mg tablet 25 mg PO DAILY Hold Instructions: hold pending normalization of kidney function Patient Comments: TAKE ONE TABLET BY MOUTH EVERY DAY lisinopril 40 mg tablet 40 mg PO DAILY Hold Instructions: hold pending normalization of kidney function Patient Comments: TAKE ONE TABLET BY MOUTH EVERY DAY Other Ambulatory Orders: Basic Metabolic Panel (Routine) Timeframe: 1 Day Facility: [facility] - Location: Laboratory Ordered By: Trevor Martin Problem Reconciliation Problems Reviewed?: Yes Patient Discharge Instructions ACTIVITY: Continue current activity DIET: continue same diet Stand Alone Forms: [facility] Work Release Patient Instructions: DI for Dehydration -- Adult, DI for Acute Kidney Injury Providers Primary Care Provider: Kimani Martin Admit Provider: Trevor Martin Attending Provider: Trevor Martin
--- NOTE | 2023-10-25 13:45 | CARE MANAGER ---
Contacted patient related to hospital discharge. He states he is doing better. He denies questions or concerns. Followed up with PCP today and had lab work completed.
== END 2023-10-21 11:46 | disposition home or self-care (01) ==
LOC: ER 18:17 → 2ND 18:28
PROVIDERS: Physician Assistant; Admitting Provider Internal Medicine Adolescent Medicine; Emergency Provider Student in an Organized Health Care Education/Training Program; PCP Internal Medicine; Visit Provider Internal Medicine Adolescent Medicine
DX: E86.0 Dehydration (principal); I10 Essential (primary) hypertension; N17.9 Acute kidney failure, unspecified; F17.290 Nicotine dependence, other tobacco product, uncomplicated; Z79.899 Other long term (current) drug therapy; T67.5XXA Heat exhaustion, unspecified, initial encounter
CPT/HCPCS: 36415; 80053; 82550; 83735; 85025; 93005; 99221; 99291; G0378; J0131; J7120

== ENCOUNTER 2023-10-23 12:46 | Outpatient (CLI) | payer OTHER, SELFPAY ==
[2023-10-23 14:01] LABS: Anion Gap 10.9 mEq/L (5-15); Blood Urea Nitrogen 27 mg/dl (9-20); Calcium 10.1 mg/dl (8.4-10.2); Carbon Dioxide 29 mmol/L (22.0-30.0); Chloride 105 mmol/L (98-107); Estimated Glomerular Filt Rate 69 ml/min (>60); GFR (African American) 84 ML/MIN (>60); Glucose 102 mg/dl (74-100); Potassium 3.9 mmoL/L (3.5-5.1); Sodium 141 mmol/L (136-145)
== END 2023-10-23 23:59 | disposition home or self-care (01) ==
LOC: LAB 12:49
PROVIDERS: PCP Internal Medicine Adolescent Medicine; Visit Provider Internal Medicine Adolescent Medicine
DX: N17.9 Acute kidney failure, unspecified (principal)
CPT/HCPCS: 36415; 80048

== ENCOUNTER 2023-10-25 09:17 | Outpatient (CLI) | payer OTHER, SELFPAY ==
[2023-10-25 09:22] LABS: Microscopic, Urine URINE MICROSCOPIC (MICROSCOPIC)
[2023-10-25 09:41] LABS: Basophils # 0.1 K/mm3 (0-0.2); Basophils % 0.9 % (0.1-2.0); Eosinophils # 0.2 K/mm3 (0.0-0.4); Eosinophils % 3.4 % (0.1-12.0); Hematocrit 39.7 % (42.0-52.0); Hemoglobin 13.6 g/dL (14.1-18.0); Lymphocytes # 1.8 K/mm3 (0.7-4.5); Lymphocytes % 26.3 % (10-50); Mean Corpuscular HGB Conc 34.2 g/dL (31.8-35.4); Mean Corpuscular Hemoglobin 33.4 pg (27.0-31.2); Mean Corpuscular Volume 97.7 fl (80-94); Monocytes # 0.3 K/mm3 (0.1-1.0); Monocytes % 4.2 % (1.7-9.3); Neutrophils # 4.6 K/mm3 (1.8-7.8); Neutrophils % 65.2 % (37.0-80.0); Platelet Count 203 K/mm3 (142-424); Red Blood Count 4.07 M/mm3 (4.60-6.20); Red Cell Distribution Width 13.6 % (11.5-17.5)
[2023-10-25 09:49] LABS: Appearance,Urine CLEAR (Clear); Bilirubin,Urine Negative (Negative); Blood, Urine Negative (Negative); Color,Urine YELLOW (Yellow); Glucose,Urine (UA) 1+ (Negative); Ketones,Urine Negative (Negative); Leukocyte Esterase,Urine Negative (Negative); Nitrate,Urine Negative (Negative); Protein,Urine Negative (Negative); Specific Gravity, Urine 1.025 (1.005-1.030); Urobilinogen,Urine 0.2 EU/dl (0.2)
[2023-10-25 09:59] LABS: Hemoglobin A1C 5.2 % (4.0-6.0)
[2023-10-25 10:04] LABS: Squamous Epithelial Cell,Urine Occasional #/hpf (0-5)
[2023-10-25 10:05] LABS: Bacteria,Urine Trace /lpf; Total Protein,Urine Random < 5.0 mg/dL (0.0-12.0)
[2023-10-25 10:18] LABS: Alanine Aminotransferase 96 U/L (12-78); Albumin/Globulin Ratio 1.7 (1.1-1.8); Alkaline Phosphatase 85 U/L (38-126); Anion Gap 10.5 mEq/L (5-15); Aspartate Amino Transferase 53 U/L (17-59); Bilirubin,Total 0.4 mg/dl (0.2-1.3); Blood Urea Nitrogen 16 mg/dl (9-20); Calcium 9.6 mg/dl (8.4-10.2); Carbon Dioxide 25 mmol/L (22.0-30.0); Chloride 106 mmol/L (98-107); Chol/HDL Ratio 4.7 (1-3.5); Cholesterol 228 mg/dl (140-200); Creatine Kinase 115 U/L (55-170); Estimated Glomerular Filt Rate 111 ml/min (>60); GFR (African American) 134 ML/MIN (>60); Globulin 2.3 g/dL (1.3-3.2); Glucose 131 mg/dl (74-100); HDL Cholesterol 49 mg/dl (40-60); Potassium 3.5 mmoL/L (3.5-5.1); Sodium 138 mmol/L (136-145); Total Protein,Serum 6.3 g/dl (6.3-8.2); Triglycerides 197 mg/dl (30-150); VLDL Cholesterol 39 mg/dL (0-40)
[2023-10-25 10:29] LABS: Direct LDL Cholesterol 139.13 mg/dL (100-129)
[2023-10-25 10:33] LABS: Free T4 (Free Thyroxine) 0.75 ng/dl (0.78-2.19)
[2023-10-25 10:34] LABS: 25-OH Vitamin D, Total 42.4 ng/mL (30-100)
[2023-10-25 10:49] LABS: Thyroid Stimulating Hormone 4.77 uIU/mL (0.465-4.68)
[2023-10-25 11:08] LABS: Vitamin B12 906 pg/mL (239-931)
== END 2023-10-25 23:59 | disposition home or self-care (01) ==
PROVIDERS: PCP Internal Medicine; Visit Provider Nurse Practitioner Family
DX: N17.9 Acute kidney failure, unspecified (principal); R53.83 Other fatigue; R73.03 Prediabetes; I10 Essential (primary) hypertension; E78.5 Hyperlipidemia, unspecified; Z72.0 Tobacco use
CPT/HCPCS: 36415; 80050; 80053; 80061; 81001; 82306; 82550; 82607; 83036; 84156; 84439; 84443; 85025; 87086

== ENCOUNTER 2023-12-10 13:08 | Outpatient (CLI) | payer OTHER, SELFPAY ==
[2023-12-10 13:28] LABS: Basophils # 0.1 K/mm3 (0-0.2); Basophils % 0.9 % (0.1-2.0); Eosinophils # 0.2 K/mm3 (0.0-0.4); Eosinophils % 2.2 % (0.1-12.0); Hematocrit 43.8 % (42.0-52.0); Hemoglobin 14.7 g/dL (14.1-18.0); Lymphocytes # 1.8 K/mm3 (0.7-4.5); Mean Corpuscular HGB Conc 33.5 g/dL (31.8-35.4); Mean Corpuscular Volume 98.6 fl (80-94); Mean Platelet Volume 7.7 fl (7.4-10.4); Monocytes # 0.3 K/mm3 (0.1-1.0); Monocytes % 3.6 % (1.7-9.3); Neutrophils # 5.4 K/mm3 (1.8-7.8); Neutrophils % 70.4 % (37.0-80.0); Platelet Count 248 K/mm3 (142-424); Red Blood Count 4.44 M/mm3 (4.60-6.20); Red Cell Distribution Width 13.5 % (11.5-17.5); White Blood Count 7.6 K/mm3 (4.8-10.8)
[2023-12-10 14:29] LABS: Chol/HDL Ratio 5.3 (1-3.5); Cholesterol 255 mg/dl (140-200); HDL Cholesterol 48 mg/dl (40-60); Triglycerides 271 mg/dl (30-150); VLDL Cholesterol 54 mg/dL (0-40)
[2023-12-10 14:40] LABS: Direct LDL Cholesterol 165.12 mg/dL (100-129)
[2023-12-10 15:01] LABS: Thyroid Stimulating Hormone 1.57 uIU/mL (0.465-4.68)
[2023-12-12 06:54] LABS: Sex Hormone Binding Globulin 17.7 nmol/L (16.5-55.9); Testosterone,Total 166 ng/dL (264-916)
== END 2023-12-10 23:59 | disposition home or self-care (01) ==
LOC: LAB 13:09
PROVIDERS: Nurse Practitioner Family; PCP Internal Medicine; Visit Provider Urology
DX: E03.9 Hypothyroidism, unspecified (principal); R53.83 Other fatigue; E78.5 Hyperlipidemia, unspecified; R33.9 Retention of urine, unspecified
CPT/HCPCS: 36415; 80061; 84270; 84403; 84443; 85025

== ENCOUNTER 2023-12-23 15:35 | Outpatient (CLI) | payer OTHER, SELFPAY ==
[2023-12-23 16:02] LABS: Basophils # 0.1 K/mm3 (0-0.2); Eosinophils # 0.2 K/mm3 (0.0-0.4); Eosinophils % 2.6 % (0.1-12.0); Hematocrit 43.5 % (42.0-52.0); Hemoglobin 14.6 g/dL (14.1-18.0); Lymphocytes # 1.5 K/mm3 (0.7-4.5); Lymphocytes % 21.4 % (10-50); Mean Corpuscular HGB Conc 33.7 g/dL (31.8-35.4); Mean Corpuscular Hemoglobin 33.1 pg (27.0-31.2); Mean Corpuscular Volume 98.4 fl (80-94); Mean Platelet Volume 8.1 fl (7.4-10.4); Monocytes # 0.4 K/mm3 (0.1-1.0); Monocytes % 5.6 % (1.7-9.3); Neutrophils # 4.8 K/mm3 (1.8-7.8); Neutrophils % 69.2 % (37.0-80.0); Platelet Count 233 K/mm3 (142-424); Red Blood Count 4.42 M/mm3 (4.60-6.20); Red Cell Distribution Width 13.4 % (11.5-17.5); White Blood Count 6.9 K/mm3 (4.8-10.8)
[2023-12-25 10:14] LABS: Sex Hormone Binding Globulin 16.5 nmol/L (16.5-55.9); Testosterone,Total 221 ng/dL (264-916)
== END 2023-12-23 23:59 | disposition home or self-care (01) ==
PROVIDERS: PCP Internal Medicine; Visit Provider Urology
DX: R79.89 Other specified abnormal findings of blood chemistry (principal)
CPT/HCPCS: 36415; 84270; 84403; 85025

== ENCOUNTER 2023-12-23 15:45 | Outpatient (CLI) | payer OTHER, SELFPAY | END 2023-12-23 23:59 | disposition home or self-care (01) | LOC: LAB 15:46 | PROVIDERS: PCP Internal Medicine; Visit Provider Urology | DX: Z02.9 Encounter for administrative examinations, unspecified (principal) ==

== ENCOUNTER 2024-02-24 14:27 | Outpatient (CLI) | payer OTHER, SELFPAY ==
[2024-02-24 15:33] LABS: Free T4 (Free Thyroxine) 0.65 ng/dl (0.78-2.19)
[2024-02-24 15:49] LABS: Thyroid Stimulating Hormone 3.32 uIU/mL (0.465-4.68)
== END 2024-02-24 23:59 | disposition home or self-care (01) ==
LOC: LAB 14:28
PROVIDERS: PCP Internal Medicine; Visit Provider Internal Medicine
DX: E03.9 Hypothyroidism, unspecified (principal); Z13.29 Encounter for screening for other suspected endocrine disorder
CPT/HCPCS: 36415; 84439; 84443

== ENCOUNTER 2024-03-27 14:46 | Outpatient (CLI) | payer OTHER, SELFPAY ==
[2024-03-27 14:50] LABS: MANUAL DIFFERENTIAL MANUAL DIFFERENTIAL (MANUAL DIFF)
[2024-03-27 15:22] LABS: Hemoglobin 14.5 g/dL (14.1-18.0); Red Blood Count 4.62 M/mm3 (4.60-6.20); White Blood Count 5.7 K/mm3 (4.8-10.8)
[2024-03-27 15:23] LABS: Basophils % 0.7 % (0.1-2.0); Eosinophils # 0.1 K/mm3 (0.0-0.4); Eosinophils % 2.4 % (0.1-12.0); Hematocrit 41.5 % (42.0-52.0); Lymphocytes # 1.5 K/mm3 (0.7-4.5); Lymphocytes % 25.3 % (10-50); Mean Corpuscular HGB Conc 34.9 g/dL (31.8-35.4); Mean Corpuscular Hemoglobin 31.4 pg (27.0-31.2); Mean Corpuscular Volume 89.8 fl (80-94); Mean Platelet Volume 10.1 fl (7.4-10.4); Monocytes # 0.4 K/mm3 (0.1-1.0); Monocytes % 6.3 % (1.7-9.3); Neutrophils # 3.7 K/mm3 (1.8-7.8); Neutrophils % 65.1 % (37.0-80.0); Platelet Count 187 K/mm3 (142-424); Red Cell Distribution Width 11.6 % (11.5-17.5)
[2024-03-27 16:36] LABS: Eosinophils % 4 % (0-3); Lymphocytes % 16 % (10-50); Monocytes % 5 % (2-9); Neutrophils % 74 % (42-76); Platelet Estimate Normal; RBC Morphology Normal; Total Cells Counted 100
[2024-03-28 11:20] LABS: Sex Hormone Binding Globulin 15.3 nmol/L (16.5-55.9); Testosterone,Total 173 ng/dL (264-916)
== END 2024-03-27 23:59 | disposition home or self-care (01) ==
LOC: LAB 14:47
PROVIDERS: PCP Internal Medicine; Visit Provider Urology
DX: E34.9 Endocrine disorder, unspecified (principal); R79.89 Other specified abnormal findings of blood chemistry
CPT/HCPCS: 36415; 84270; 84403; 85007; 85014; 85018; 85048; 85049

== ENCOUNTER 2024-05-26 09:50 | Outpatient (CLI) | payer OTHER, SELFPAY ==
[2024-05-26 10:44] LABS: Basophils # 0.1 K/mm3 (0-0.2); Basophils % 0.8 % (0.1-2.0); Eosinophils # 0.2 K/mm3 (0.0-0.4); Eosinophils % 2.5 % (0.1-12.0); Hematocrit 44.1 % (42.0-52.0); Hemoglobin 15.3 g/dL (14.1-18.0); Lymphocytes # 1.6 K/mm3 (0.7-4.5); Lymphocytes % 26.9 % (10-50); Mean Corpuscular HGB Conc 34.7 g/dL (31.8-35.4); Mean Corpuscular Hemoglobin 31.1 pg (27.0-31.2); Mean Corpuscular Volume 89.6 fl (80-94); Mean Platelet Volume 10.3 fl (7.4-10.4); Monocytes # 0.4 K/mm3 (0.1-1.0); Monocytes % 7.3 % (1.7-9.3); Neutrophils # 3.8 K/mm3 (1.8-7.8); Neutrophils % 62.2 % (37.0-80.0); Platelet Count 217 K/mm3 (142-424); Red Blood Count 4.92 M/mm3 (4.60-6.20); Red Cell Distribution Width 12.1 % (11.5-17.5); White Blood Count 6.1 K/mm3 (4.8-10.8)
[2024-05-26 11:22] LABS: Albumin Level 5.3 g/dl (3.5-5.0); Chloride 96 mmol/L (98-107); Potassium 4.1 mmoL/L (3.5-5.1); Sodium 138 mmol/L (136-145)
[2024-05-26 11:25] LABS: Alanine Aminotransferase 74 U/L (12-78); Alkaline Phosphatase 77 U/L (38-126); Anion Gap 15.1 mEq/L (5-15); Aspartate Amino Transferase 55 U/L (17-59); Bilirubin,Total 0.8 mg/dl (0.2-1.3); Blood Urea Nitrogen 22 mg/dl (9-20); Carbon Dioxide 31 mmol/L (22.0-30.0); Estimated Glomerular Filt Rate 85 ml/min (>60); GFR (African American) 103 ML/MIN (>60); Globulin 2.6 g/dL (1.3-3.2); Total Protein,Serum 7.9 g/dl (6.3-8.2)
[2024-05-26 11:26] LABS: Glucose 85 mg/dl (74-100)
[2024-05-26 11:44] LABS: Free T4 (Free Thyroxine) 1.21 ng/dl (0.78-2.19)
[2024-05-26 11:56] LABS: Thyroid Stimulating Hormone 1.59 uIU/mL (0.465-4.68)
[2024-05-26 21:31] LABS: Gamma Glutamyl Transpeptidase 37 U/L (15-73)
[2024-05-27 08:21] LABS: Sex Hormone Binding Globulin 17.5 nmol/L (16.5-55.9)
[2024-05-30 01:07] LABS: Estrogen 67 pg/mL (56-213)
[2024-06-03 20:13] LABS: Testosterone, Total, LC/MS 264 ng/dL (.)
== END 2024-05-26 23:59 | disposition home or self-care (01) ==
LOC: LAB 09:52
PROVIDERS: PCP Internal Medicine; Visit Provider Internal Medicine
DX: E03.9 Hypothyroidism, unspecified (principal); R53.83 Other fatigue; Z79.899 Other long term (current) drug therapy; Z13.29 Encounter for screening for other suspected endocrine disorder
CPT/HCPCS: 36415; 80053; 82672; 82977; 84270; 84403; 84439; 84443; 85025

== ENCOUNTER 2024-07-04 10:53 | Emergency (ER) | payer OTHER, SELFPAY ==
--- NOTE | 2024-07-04 10:55 | ECG_ITS ---
APPROVED REPORT Exam: Resting ECG HR:72 bpm ECG Measurements Heart Rate 72 AXES NV 154 P 53 QRSd 113 QRS 97 QT 371 T -22 QTc 395 Conclusion Sinus rhythm Right axis deviation T wave inversions in 3 and aVF with no reciprocal elevations Electronically signed by : HYACINTH HOLLY, 07/04/2024 14:39:22
[2024-07-04 10:58] VITALS: BP 160/96; PULSE 82; RESP 16; TEMP 36.6; O2SAT 97; BMI 38.2
[2024-07-04 11:01] VITALS: BP 160/96; PULSE 79; RESP 17; O2SAT 99
--- NOTE | 2024-07-04 11:05 | PC.NURSE ---
David Cleaning took FSBS and it was 111.
--- NOTE | 2024-07-04 11:06 | XR_ITS ---
FINAL REPORT CLINICAL HISTORY: cp COMPARISON: None FINDINGS: CHEST 2 VIEWS: No acute pulmonary opacity is present. There is no evidence of effusion or pneumothorax. Mediastinum is unremarkable. Heart size is normal. IMPRESSION: No acute abnormality. Reviewed, Interpreted and Dictated by Jyothi Taveras MD Transcribed by Nella Ace Authenticated and [facility]
--- NOTE | 2024-07-04 11:07 | ED_ITS ---
Discharge Plan Disposition Patient Disposition: Home, Self-Care Condition: Good Prescriptions Prescriptions: No Action (DME) blood pressure kit-extra large Kit See Rx Instructions .Route Qty: 1 0RF Rx Instructions: As directed lisinopril 40 mg tablet See Rx Instructions .ROUTE .COMPLEX Qty: 90 3RF Dose Instruction: TAKE ONE TABLET BY MOUTH EVERY DAY Rx Instructions: TAKE ONE TABLET BY MOUTH EVERY DAY bupropion HCl 300 mg tablet extended release 24 hr See Rx Instructions .ROUTE .COMPLEX Qty: 90 3RF Dose Instruction: TAKE ONE TABLET BY MOUTH EVERY DAY Rx Instructions: TAKE ONE TABLET BY MOUTH EVERY DAY rosuvastatin 20 mg tablet 20 mg PO DAILY Qty: 90 3RF testosterone [AndroGel] 20.25 mg/1.25 gram (1.62 %) gel in metered-dose pump 4 pump topical DAILY 30 Days Qty: 150 0RF Rx Instructions: apply 2 pumps daily to skin of upper arm and shoulder chlorthalidone 25 mg tablet See Rx Instructions .ROUTE .COMPLEX Qty: 30 3RF Dose Instruction: TAKE ONE TABLET BY MOUTH EVERY DAY Rx Instructions: TAKE ONE TABLET BY MOUTH EVERY DAY levothyroxine 150 mcg tablet See Rx Instructions .ROUTE .COMPLEX Qty: 30 2RF Dose Instruction: TAKE ONE TABLET BY MOUTH EVERY DAY Rx Instructions: TAKE ONE TABLET BY MOUTH EVERY DAY Referrals Follow up/Referrals: Provider,Referral, MD [Referring] - See instructions Activity Restrictions/Add. Instructions Additional Instructions/Restrictions: Today you were evaluated in the emergency department, your workup was overall unremarkable. Your cardiac enzyme is negative. Your chest x-ray is unremarkable. It may be beneficial for you to follow-up with cardiology or your primary care provider for a Holter monitor. Please return to the ED for any worsening of your condition. Clinical Impressions Clinical Impression: Chest tightness Instructions Patient Instructions: DI for Chest Pain Print Language Print Language: German Discharge ED Provider: Honorio Riley General Adult HPI <Susy Burleson APRN - Last Filed: 07/04/24 13:05> General Chief complaint: Dizziness Stated complaint: Chest Tightness Time Seen by Provider: 07/04/24 10:58 Mode of Arrival: Ambulatory Source of Information: Patient Description of Symptoms (Recalled from ER Triage Doc. by RN): Patient reports feeling like he was going to pass out last night. States that then this morning he began to get lightheaded again while driving and got hot and sweaty. States he doesn't know if it is just anxiety or not. History of Present Illness HPI narrative: Patient is a 34-year-old male PMHx HTN, GERD, hyperlipidemia, obesity, tobacco use who presents to the ED for chest wall tightness, palpitations and dizziness that occurred yesterday. Patient states he was walking into his home when he suddenly felt lightheaded, dizzy, had a bit of chest tightness that resolved on its own. Related Data Previous Rx's ?Medication ?Instructions ?Recorded blood pressure kit-extra large #1 ea 03/09/22 lisinopril 40 mg tablet See Rx Instructions .Route 11/02/23 .COMPLEX #90 tabs bupropion HCl 300 mg 24 hr tablet, See Rx Instructions .Route 11/04/23 extended release .COMPLEX #90 tabs rosuvastatin 20 mg tablet 20 mg PO DAILY #90 tabs 12/13/23 testosterone (AndroGel) 4 pump topical DAILY 30 days #150 03/30/24 grams chlorthalidone 25 mg tablet See Rx Instructions .Route 05/08/24 .COMPLEX #30 tabs levothyroxine 150 mcg tablet See Rx Instructions .Route 05/23/24 .COMPLEX #30 tabs Allergies Allergy/AdvReac Type Severity Reaction Status Date / Time No Known Allergies Allergy Verified 06/02/24 08:33 [facility] <Susy Burleson APRN - Last Filed: 07/04/24 13:05> [facility] Disclaimer: The information contained in this section may have been updated after the patient was seen, as this information can be updated by other users. Medical History ABDELRAHMAN (acute kidney injury) BMI 39.0-39.9,adult Alcohol abuse Kidney stones Seasonal allergies Edema High blood pressure Surgical History [place] teeth extracted Family History Mother Hypertension Social History Smoking Status: Former smoker tobacco type: e-cigarettes smoking status start date: 2013 years smoked: 10 (stopped smoking ciggarettes 1.5 years ago and started vaping ) quit status: considering quitting alcohol intake: current alcohol intake frequency: 0-2 drinks per day substance use type: denies use current occupational status: employed Travel in the last 8 weeks: None household members: spouse and children lives independently: Yes marital status: number of children: 2 Other Medical History Have you received the Flu Vaccine for this season: No Have you received the Pneumonia Vaccine: No <Susy Burleson APRN - Last Filed: 07/04/24 13:05> ROS Obtained: Yes Systems reviewed as appropriate & no additional complaints except as documented Physical Exam <Susy Burleson APRN - Last Filed: 07/04/24 13:05> General General appearance: alert and in no apparent distress Head Head exam: atraumatic and normocephalic Eye Eye exam: Present normal appearance and PERRL ENT ENT exam: Present normal exam Neck Neck exam: Present normal inspection Chest Chest inspection: Present normal inspection and symmetric chest wall rise; Absent tenderness Respiratory Respiratory exam: Present normal lung sounds bilaterally Cardiovascular Cardiovascular exam: Present regular rate Abdominal Exam Abdominal exam: Present soft and normal bowel sounds; Absent tenderness Extremities Exam Extremities exam: Present normal inspection and full ROM Back Exam Back exam: Present normal inspection and full ROM Neurological Exam Neurological exam: Present alert and oriented X3 Psychiatric Psychiatric exam: Present normal affect and normal mood Skin Skin exam: Present warm and dry Medical Decision Making <Susy Burleson APRN - Last Filed: 07/04/24 13:05> Medical Records Screening: Per USPSTF and CDC recommendations, given the prevalence of disease in our region, it is our hospital?s policy to screen for HIV and viral Hepatitis for all patients aged 18 and over and those with ongoing risk factors. [place] Inquiry Pt receiving controlled substance: No Vital Signs: 07/04/24 10:58 07/04/24 11:01 07/04/24 12:30 Temperature 97.9 F Temperature Source Oral Pulse Rate 79 73 Pulse Rate [Radial] 82 Respiratory Rate 16 17 15 Blood Pressure 160/96 H 135/61 Blood Pressure [Right Arm] 160/96 H Blood Pressure Mean [Right Arm] 117 Blood Pressure Source Blood Pressure Source [Right Arm] Automatic Cuff Blood Pressure Position Blood Pressure Position [Right Arm] Sitting 02 Sat by Pulse Oximetry 97 99 98 Oxygen Delivery Method Room Air Room Air Room Air 07/04/24 13:01 Temperature 98.3 F Temperature Source Oral Pulse Rate 80 Pulse Rate [Radial] Respiratory Rate 18 Blood Pressure 116/61 Blood Pressure [Right Arm] Blood Pressure Mean [Right Arm] Blood Pressure Source Automatic Cuff Blood Pressure Source [Right Arm] Blood Pressure Position Supine Blood Pressure Position [Right Arm] 02 Sat by Pulse Oximetry Oxygen Delivery Method Room Air Lab Data Lab Results 07/04/24 11:13: WBC 6.7, RBC 4.69, Hgb 14.8, Hct 43.3, MCV 92.3, MCH 31.6 H, MCHC 34.2, RDW 12.0, Plt Count 216, MPV 9.9, Neut % (Auto) 70.7, Lymph % (Auto) 20.3, [place] % (Auto) 6.6, Eos % (Auto) 1.3, Baso % (Auto) 0.7, Neut # (Auto) 4.7, Lymph # (Auto) 1.4, [place] # (Auto) 0.4, Eos # (Auto) 0.1, Baso # (Auto) 0.1, Sodium 140, Potassium 4.0, Chloride 100, Carbon Dioxide 32 H, Anion Gap 12.0, BUN 18, Creatinine 0.90, Estimated Creat Clear 213, Estimated GFR 96, Est GFR ( Amer) 116, Glucose 113 H, Calcium 10.2, Total Bilirubin 0.4, AST 37, ALT 43, Alkaline Phosphatase 92, Troponin I < 0.01, Total Protein 7.7, Albumin 5.0, Globulin 2.7, Albumin/Globulin Ratio 1.9 H, Lipase 125, HCV Ab CHRISTIAN w/Rflx PCR Qn Negative, HIV Ag/Ab Combo Qual Negative 07/04/24 11:24: SARS-CoV-2 (PCR) Not detected, Influenza A Untype (PCR) Not detected, Influenza Type B (PCR) Not detected 07/04/24 11:13 07/04/24 11:13 Orders (Tests/Meds): ORDERS Category Date Time Status CXR --portable [XR chest portable] Stat Exams 07/04/24 11:06 Completed CBC w/Auto Diff [Complete Blood Count Auto Diff] Stat Lab 07/04/24 11:13 Completed CMP [Comprehensive Metabolic Panel] Stat Lab 07/04/24 11:13 Completed HIV Combo Stat Lab 07/04/24 11:13 Completed Hepatitis C Ab Qual. W/ RFX Stat Lab 07/04/24 11:13 Completed Lipase Stat Lab 07/04/24 11:13 Completed Rapid PCR Covid and Flu A/B Stat Lab 07/04/24 11:24 Completed Trop I [Troponin I] Stat Lab 07/04/24 11:13 Completed Troponin I Q3H Lab 07/04/24 14:15 Ordered Troponin I Q3H Lab 07/04/24 17:15 Ordered Medical Decision Narrative: In summary, patient is a 34-year-old male PMHx HTN, GERD, hyperlipidemia, obesity, tobacco use who presents to the ED for chest wall tightness, palpitations and dizziness that occurred yesterday. Patient states he was walking into his home when he suddenly felt lightheaded, dizzy, had a bit of chest tightness that resolved on its own. He states that his chest tightness did not radiate into his back, arms or jaws. He denies any family history of cardiac disease. He states this occurred once approximately 7 years ago and was evaluated but no known cause was found. He denies any changes in medication or any strenuous activity prior to the event. Denies any history of GA. Denies fever, chills, body ache, headache, posterior neck pain, shortness of breath, abdominal pain, nausea, vomiting, dysuria. Upon initial exam, patient is alert, oriented and cooperative. Patient is hemodynamically stable. Physical exam remarkable unremarkable, no chest wall tenderness. Differential diagnosis includes ACS, dissection, pulmonary embolism, pneumonia, musculoskeletal chest pain, atypical chest pain, among others. Initial workup will be conducted with hematologic labs & imaging. Initial workup reviewed by me. CBC unremarkable for leukocytosis, stable H&H. CMP overall unremarkable for any actionable abnormalities. First troponin < 0.01. Lipase 125. COVID and influenza swab negative. I considered additional testing but deferred due to patient symptoms resolved. I informally interpreted the imaging as no acute cardiopulmonary findings on cxr. Upon repeat evaluation, patient had an acceptable resolution of symptoms. They were ambulatory in the ED. Able to tolerate PO. Given this, I feel that patient is safe to be discharged home at this time. I discussed with him that he most likely will need a Holter monitor. Patient states that he feels this could be caused by anxiety as anytime he has health issue he becomes extremely anxious. I advised him to call his PCP or rock contractor for follow-up. Patient's partner called PCP while in the ED to set up a follow-up appointment. I discussed that if his symptoms worsen or return, anything that concerns him that he will need to return to the ED immediately. Patient verbalized understanding. <Honorio Riley MD - Last Filed: 07/04/24 13:54> Vital Signs: 07/04/24 10:58 07/04/24 11:01 07/04/24 12:30 Temperature 97.9 F Temperature Source Oral Pulse Rate 79 73 Pulse Rate [Radial] 82 Respiratory Rate 16 17 15 Blood Pressure 160/96 H 135/61 Blood Pressure [Right Arm] 160/96 H Blood Pressure Mean [Right Arm] 117 Blood Pressure Source Blood Pressure Source [Right Arm] Automatic Cuff Blood Pressure Position Blood Pressure Position [Right Arm] Sitting 02 Sat by Pulse Oximetry 97 99 98 Oxygen Delivery Method Room Air Room Air Room Air 07/04/24 13:01 Temperature 98.3 F Temperature Source Oral Pulse Rate 80 Pulse Rate [Radial] Respiratory Rate 18 Blood Pressure 116/61 Blood Pressure [Right Arm] Blood Pressure Mean [Right Arm] Blood Pressure Source Automatic Cuff Blood Pressure Source [Right Arm] Blood Pressure Position Supine Blood Pressure Position [Right Arm] 02 Sat by Pulse Oximetry Oxygen Delivery Method Room Air Lab Data Lab Results 07/04/24 11:13: WBC 6.7, RBC 4.69, Hgb 14.8, Hct 43.3, MCV 92.3, MCH 31.6 H, MCHC 34.2, RDW 12.0, Plt Count 216, MPV 9.9, Neut % (Auto) 70.7, Lymph % (Auto) 20.3, [place] % (Auto) 6.6, Eos % (Auto) 1.3, Baso % (Auto) 0.7, Neut # (Auto) 4.7, Lymph # (Auto) 1.4, [place] # (Auto) 0.4, Eos # (Auto) 0.1, Baso # (Auto) 0.1, Sodium 140, Potassium 4.0, Chloride 100, Carbon Dioxide 32 H, Anion Gap 12.0, BUN 18, Creatinine 0.90, Estimated Creat Clear 213, Estimated GFR 96, Est GFR ( Amer) 116, Glucose 113 H, Calcium 10.2, Total Bilirubin 0.4, AST 37, ALT 43, Alkaline Phosphatase 92, Troponin I < 0.01, Total Protein 7.7, Albumin 5.0, Globulin 2.7, Albumin/Globulin Ratio 1.9 H, Lipase 125, HCV Ab CHRISTIAN w/Rflx PCR Qn Negative, HIV Ag/Ab Combo Qual Negative 07/04/24 11:24: SARS-CoV-2 (PCR) Not detected, Influenza A Untype (PCR) Not detected, Influenza Type B (PCR) Not detected Orders (Tests/Meds): ORDERS Category Date Time Status CXR --portable [XR chest portable] Stat Exams 07/04/24 11:06 Completed CBC w/Auto Diff [Complete Blood Count Auto Diff] Stat Lab 07/04/24 11:13 Completed CMP [Comprehensive Metabolic Panel] Stat Lab 07/04/24 11:13 Completed HIV Combo Stat Lab 07/04/24 11:13 Completed Hepatitis C Ab Qual. W/ RFX Stat Lab 07/04/24 11:13 Completed Lipase Stat Lab 07/04/24 11:13 Completed Rapid PCR Covid and Flu A/B Stat Lab 07/04/24 11:24 Completed Trop I [Troponin I] Stat Lab 07/04/24 11:13 Completed Troponin I Q3H Lab 07/04/24 14:15 Ordered Troponin I Q3H Lab 07/04/24 17:15 Ordered ECG Data Tracing #1: I reviewed this ECG and interpreted as documented below: (Right axis deviation. Sinus rhythm 72 bpm with SC 154, QRS 113, QTc 395. T wave inversions III and aVF. No reciprocal change) Medical Decision Narrative: In summary, patient is a 34-year-old male PMHx HTN, GERD, hyperlipidemia, obesity, tobacco use who presents to the ED for chest wall tightness, palpitations and dizziness that occurred yesterday. Patient states he was walking into his home when he suddenly felt lightheaded, dizzy, had a bit of chest tightness that resolved on its own. He states that his chest tightness did not radiate into his back, arms or jaws. He denies any family history of cardiac disease. He states this occurred once approximately 7 years ago and was evaluated but no known cause was found. He denies any changes in medication or any strenuous activity prior to the event. Denies any history of GA. Denies fever, chills, body ache, headache, posterior neck pain, shortness of breath, abdominal pain, nausea, vomiting, dysuria. Upon initial exam, patient is alert, oriented and cooperative. Patient is hemodynamically stable. Physical exam remarkable unremarkable, no chest wall tenderness. Differential diagnosis includes ACS, dissection, pulmonary embolism, pneumonia, musculoskeletal chest pain, atypical chest pain, among others. Initial workup will be conducted with hematologic labs & imaging. Initial workup reviewed by me. CBC unremarkable for leukocytosis, stable H&H. CMP overall unremarkable for any actionable abnormalities. First troponin < 0.01. Lipase 125. COVID and influenza swab negative. I considered additional testing but deferred due to patient symptoms resolved. I informally interpreted the imaging as no acute cardiopulmonary findings on cxr. Upon repeat evaluation, patient had an acceptable resolution of symptoms. They were ambulatory in the ED. Able to tolerate PO. Given this, I feel that patient is safe to be discharged home at this time. I discussed with him that he most likely will need a Holter monitor. Patient states that he feels this could be caused by anxiety as anytime he has health issue he becomes extremely anxious. I advised him to call his PCP or rock contractor for follow-up. Patient's partner called PCP while in the ED to set up a follow-up appointment. I discussed that if his symptoms worsen or return, anything that concerns him that he will need to return to the ED immediately. Patient verbalized understanding I was consulted by the JOHANNA, and we discussed the complexity of the problems being addressed. I approved the treatment and management plan for this patient's care in the Emergency Department, thus performing a substantive portion of the medical decision making. Honorio Riley MD Critical Care <Susy Burleson, [employer]RAFTING [employer]AY[employer] - Last Filed: 07/04/24 13:05> Critical Care Time Critical Care Time: No
[2024-07-04 11:22] LABS: Basophils # 0.1 K/mm3 (0-0.2); Basophils % 0.7 % (0.1-2.0); Eosinophils # 0.1 K/mm3 (0.0-0.4); Eosinophils % 1.3 % (0.1-12.0); Hematocrit 43.3 % (42.0-52.0); Hemoglobin 14.8 g/dL (14.1-18.0); Lymphocytes # 1.4 K/mm3 (0.7-4.5); Lymphocytes % 20.3 % (10-50); Mean Corpuscular HGB Conc 34.2 g/dL (31.8-35.4); Mean Corpuscular Hemoglobin 31.6 pg (27.0-31.2); Mean Corpuscular Volume 92.3 fl (80-94); Mean Platelet Volume 9.9 fl (7.4-10.4); Monocytes # 0.4 K/mm3 (0.1-1.0); Monocytes % 6.6 % (1.7-9.3); Neutrophils # 4.7 K/mm3 (1.8-7.8); Neutrophils % 70.7 % (37.0-80.0); Platelet Count 216 K/mm3 (142-424); Red Blood Count 4.69 M/mm3 (4.60-6.20); White Blood Count 6.7 K/mm3 (4.8-10.8)
[2024-07-04 11:28] LABS: Coronavirus 19, PCR Not Detected (NotDetected); Influenza A, PCR Not Detected (NotDetected); Influenza B, PCR Not Detected (NotDetected)
[2024-07-04 11:37] LABS: Chloride 100 mmol/L (98-107); Sodium 140 mmol/L (136-145)
[2024-07-04 11:39] LABS: Alanine Aminotransferase 43 U/L (12-78); Alkaline Phosphatase 92 U/L (38-126); Aspartate Amino Transferase 37 U/L (17-59); Bilirubin,Total 0.4 mg/dl (0.2-1.3); Blood Urea Nitrogen 18 mg/dl (9-20); Carbon Dioxide 32 mmol/L (22.0-30.0); Creatinine Clearance Estimated 213 mL/min (50-200); Estimated Glomerular Filt Rate 96 ml/min (>60); GFR (African American) 116 ML/MIN (>60); Total Protein,Serum 7.7 g/dl (6.3-8.2)
[2024-07-04 11:40] LABS: Calcium 10.2 mg/dl (8.4-10.2); Glucose 113 mg/dl (74-100); Lipase 125 U/L (23-300)
[2024-07-04 11:53] LABS: Troponin I < 0.01 ng/ml (0.00-0.034)
[2024-07-04 12:18] LABS: Albumin/Globulin Ratio 1.9 (1.1-1.8); Globulin 2.7 g/dL (1.3-3.2)
[2024-07-04 12:30] VITALS: BP 135/61; PULSE 73; RESP 15; O2SAT 98
[2024-07-04 12:32] LABS: HIV Combo NEGATIVE (Negative)
[2024-07-04 12:39] LABS: Hepatitis C Ab Qual. W/ RFX NEGATIVE (Negative)
[2024-07-04 13:01] VITALS: BP 116/61; PULSE 80; RESP 18; TEMP 36.8; O2SAT 97
== END 2024-07-04 13:02 | disposition home or self-care (01) ==
PROVIDERS: Nurse Practitioner; Emergency Provider Emergency Medicine; PCP Internal Medicine
DX: R07.89 Other chest pain (principal)
CPT/HCPCS: 71045; 80053; 83690; 84484; 85025; 86803; 87389; 87636; 93005; 99284

== ENCOUNTER 2024-08-04 09:11 | Outpatient (CLI) | payer OTHER, SELFPAY ==
--- NOTE | 2024-08-04 09:13 | XR_ITS ---
FINAL REPORT CLINICAL HISTORY: right shoulder pain FINDINGS: RIGHT SHOULDER 2 views demonstrate no acute fracture or dislocation. The visualized joint spaces are normally aligned. The soft tissues are unremarkable. IMPRESSION: No acute process. Reviewed, Interpreted and Dictated by Michael Hopkins MD Transcribed by Mireille Pizano Authenticated and [facility]
--- NOTE | 2024-08-04 09:13 | XR_ITS ---
FINAL REPORT CLINICAL HISTORY: left elbow pain FINDINGS: LEFT ELBOW Three views were obtained. There is no acute fracture or dislocation. Joint spaces are maintained. No acute soft tissue abnormality is seen. IMPRESSION: No acute bony abnormality. Reviewed, Interpreted and Dictated by Michael Hopkins MD Transcribed by Mireille Pizano Authenticated and . [facility]
== END 2024-08-04 23:59 | disposition home or self-care (01) ==
LOC: RAD 09:12
PROVIDERS: PCP Internal Medicine; Visit Provider Physician Assistant Surgical
DX: M25.511 Pain in right shoulder (principal); M25.522 Pain in left elbow
CPT/HCPCS: 73030; 73080

== ENCOUNTER 2024-09-08 12:21 | Outpatient (CLI) | payer OTHER, SELFPAY ==
[2024-09-08 13:08] LABS: Basophils % 0.7 % (0.1-2.0); Eosinophils # 0.1 Kmm3 (0.0-0.4); Eosinophils % 2.4 % (0.1-12.0); Hematocrit 41.8 % (42.0-52.0); Hemoglobin 14.3 g/dL (14.1-18.0); Immature Granulocytes # 0.02 10^3uL; Immature Granulocytes % 0.3 %; Lymphocytes # 1.4 K/mm3 (0.7-4.5); Lymphocytes % 24.3 % (10-50); Mean Corpuscular HGB Conc 34.2 g/dL (31.8-35.4); Mean Corpuscular Volume 90.5 fl (80-94); Mean Platelet Volume 10.4 fl (7.4-10.4); Monocytes # 0.4 K/mm3 (0.1-1.0); Monocytes % 6.8 % (1.7-9.3); Neutrophils # 3.8 K/mm3 (1.8-7.8); Neutrophils % 65.5 % (37.0-80.0); Nucleated Red Blood Cells # 0 10^3/uL; Nucleated Red Blood Cells % 0 %; Platelet Count 202 K/mm3 (142-424); Red Blood Count 4.62 M/mm3 (4.60-6.20); Red Cell Distribution Width 12.3 % (11.5-17.5); Red Cell Distribution Width-SD 40.4 fL; White Blood Count 5.7 K/mm3 (4.8-10.8)
[2024-09-09 09:13] LABS: Sex Hormone Binding Globulin 16.2 nmol/L (16.5-55.9); Testosterone,Total 436 ng/dL (264-916)
== END 2024-09-08 23:59 | disposition home or self-care (01) ==
LOC: LAB 12:22
PROVIDERS: PCP Internal Medicine; Visit Provider Urology
DX: E29.1 Testicular hypofunction (principal); R53.83 Other fatigue
CPT/HCPCS: 36415; 84270; 84403; 85025

== ENCOUNTER 2024-11-13 09:29 | Outpatient (CLI) | payer OTHER, SELFPAY ==
[2024-11-14 08:17] LABS: Testosterone,Total 759 ng/dL (264-916)
== END 2024-11-13 23:59 | disposition home or self-care (01) ==
LOC: LAB 09:30
PROVIDERS: PCP Internal Medicine; Visit Provider Urology
DX: R79.89 Other specified abnormal findings of blood chemistry (principal)
CPT/HCPCS: 36415; 84270; 84403

== ENCOUNTER 2025-02-12 09:08 | Outpatient (CLI) | payer OTHER, SELFPAY ==
[2025-02-13 11:25] LABS: Testosterone,Total 404 ng/dL (264-916)
== END 2025-02-12 23:59 | disposition home or self-care (01) ==
LOC: LAB 09:08
PROVIDERS: PCP Internal Medicine; Visit Provider Urology
DX: R53.83 Other fatigue (principal)
CPT/HCPCS: 36415; 84270; 84403